=== PATIENT | female | born 1965 | race Caucasian/White ===

== ENCOUNTER 2017-03-26 15:18 | Inpatient (IN) | payer MEDICAID ==
[2017-03-26 16:43] LABS: ABSOLUTE EOSINOPHILS # (AUTO) 0.1 10^3/uL (0.0-0.6); ABSOLUTE MONOCYTES (AUTO) 0.5 10^3/uL (0.1-1.4); ABSOLUTE NEUT (AUTO) 9.9 10^3/uL (1.7-8.2); BASOPHILS % (AUTO) 0.2 % (0-2); EOSINOPHILS % (AUTO) 0.4 % (0-6); HEMOGLOBIN 13.7 g/dL (12.0-15.5); LYMPHOCYTES % (AUTO) 16.1 % (13-45); MEAN CORPUSCULAR HEMOGLOBIN 31.7 pg (27.0-33.4); MEAN CORPUSCULAR HGB CONC 34.2 g/dL (32.0-36.0); MEAN CORPUSCULAR VOLUME 93 fl (80-97); MONOCYTES % (AUTO) 4.3 % (3-13); PLATELET COUNT 355 10^3/uL (150-450); RED BLOOD COUNT 4.31 10^6/uL (3.72-5.28); RED CELL DISTRIBUTION WIDTH 13.9 % (11.5-14.0); TOTAL CELLS COUNTED % (AUTO) 100 %; WHITE BLOOD COUNT 12.6 10^3/uL (4.0-10.5)
[2017-03-26 17:12] LABS: ALANINE AMINOTRANSFERASE 21 U/L (9-52); ALBUMIN 3.7 g/dL (3.5-5.0); ALKALINE PHOSPHATASE 85 U/L (38-126); ANION GAP 7 (5-19); ASPARTATE AMINO TRANSFERASE 21 U/L (14-36); BILIRUBIN,DIRECT 0.2 mg/dL (0.0-0.4); BILIRUBIN,TOTAL 0.4 mg/dL (0.2-1.3); BLOOD UREA NITROGEN 8 mg/dL (7-20); CALCIUM 9.4 mg/dL (8.4-10.2); CARBON DIOXIDE 25 mmol/L (22-30); CHLORIDE 105 mmol/L (98-107); CREATINE KINASE 90 U/L (30-135); GLUCOSE 177 mg/dL (75-110); SODIUM 137.1 mmol/L (137-145); TOTAL PROTEIN 6.9 g/dL (6.3-8.2)
[2017-03-26 17:20] LABS: CREATINE KINASE MB 0.34 ng/mL (<4.55)
[2017-03-26 17:29] LABS: TROPONIN I < 0.012 ng/mL
--- NOTE | 2017-03-26 18:19 | EKG REPORT ---
SEVERITY:- ABNORMAL ECG - SINUS RHYTHM NONSPECIFIC T ABNORMALITIES, ANT-LAT LEADS : Confirmed by: Steven Villafuerte MD 26-Mar-2017 18:18:23
[2017-03-26] MEDS ORDERED: KETOROLAC TROMETHAMINE INJ/PF 30 MG/1 ML SDV IV ONE (20:02)
--- NOTE | 2017-03-26 20:14 | RADIOLOGY REPORT (SQ) ---
EXAM DESCRIPTION: CHEST SINGLE VIEW COMPLETED DATE/TIME: 03/26/2017 7:58 pm REASON FOR STUDY: chest pain COMPARISON: 10/25/2013 EXAM PARAMETERS: NUMBER OF VIEWS: One view. TECHNIQUE: Single frontal radiographic view of the chest acquired. RADIATION DOSE: NA LIMITATIONS: None. FINDINGS: LUNGS AND PLEURA: Opacities at the left base. Right lung is clear. MEDIASTINUM AND HILAR STRUCTURES: No masses. Contour normal. HEART AND VASCULAR STRUCTURES: Heart normal in size. Normal vasculature. BONES: No acute findings. HARDWARE: None in the chest. OTHER: No other significant finding. IMPRESSION: Left basilar pneumonitis. TECHNICAL DOCUMENTATION: JOB ID: [id number] [employer]- All Rights Reserved
--- NOTE | 2017-03-26 22:05 | ER Document Report ---
ED General - General Chief Complaint: Chest Pain Stated Complaint: CHEST PAIN Time Seen by Provider: 03/26/17 16:50 Mode of Arrival: Medic Information source: Patient TRAVEL OUTSIDE OF THE [place] IN LAST 30 DAYS: No - HPI Patient complains to provider of: chest pain for 2 weeks on and off Onset: Other - 2 weeks ago Onset/Duration: Intermittent Quality of pain: Dull Severity: Moderate Associated symptoms: Other - jaw pain Exacerbated by: Denies Relieved by: Denies Similar symptoms previously: Yes Recently seen / treated by doctor: No Notes: Patient states that she had chest pain last week that resolved on its wound and then returned today. No alleviating or aggravating factor. - Related Data Allergies/Adverse Reactions: No Known Allergies Allergy (Verified 01/19/13 08:35) Home Medications: Current Home Medications Fentanyl [Duragesic 100 Mcg/Hr Transdermal Patch] 100 mcg TOP Q3D 03/27/17 [ History] Quetiapine Fumarate [Seroquel 25 mg Tablet] 25 mg PO DAILY 03/27/17 [History] Sertraline HCl [Zoloft] 25 mg PO DAILY 03/27/17 [History] Tizanidine HCl [Zanaflex] 4 mg PO TID 03/27/17 [History] Past Medical History - General Information source: Patient - Social History Smoking Status: Current Every Day Smoker Frequency of alcohol use: Occasional Drug Abuse: None Lives with: Family Family History: Arthritis, Other - Patient's mother is alive and well at 72 years old Patient has suicidal ideation: No Patient has homicidal ideation: No - Past Medical History Cardiac Medical History: Denies: Hx Coronary Artery Disease, Hx Heart Attack, Hx Hypertension Pulmonary Medical History: Reports: Hx Bronchitis Denies: Hx Asthma, Hx COPD, Hx Pneumonia, Hx Tuberculosis Neurological Medical History: Denies: Hx Cerebrovascular Accident, Hx Seizures Endocrine Medical History: Reports: None Renal/ Medical History: Denies: Hx Peritoneal Dialysis Musculoskeltal Medical History: Reports Hx Arthritis - OA, Reports Hx Fibromyalgia, Reports Hx Musculoskeletal Deformity Psychiatric Medical History: Reports: Hx Bipolar Disorder, Hx Depression Past Surgical History: Reports: Hx Hysterectomy Other: OA, fibromyalgia, low bone density - Immunizations Hx Diphtheria, Pertussis, Tetanus Vaccination: Yes History of Influenza Vaccine for 12/2016 - 05/2017 Season: No Hx Pneumococcal Vaccination: 09/12/09 Review of Systems - Review of Systems Constitutional: No symptoms reported EENT: No symptoms reported Cardiovascular: See HPI Respiratory: Cough Gastrointestinal: No symptoms reported Genitourinary: No symptoms reported Female Genitourinary: No symptoms reported Musculoskeletal: No symptoms reported Skin: No symptoms reported Hematologic/Lymphatic: No symptoms reported Neurological/Psychological: No symptoms reported Physical Exam - Vital signs Vitals: Resp Pulse Ox 19 97 03/26/17 15:46 03/26/17 15:46 Interpretation: Normal, Other Notes: PHYSICAL EXAMINATION: GENERAL: 52-year-old female who appears older than stated age. Ill- appearing no acute distress. HEAD: Atraumatic, normocephalic. EYES: Pupils equal round and reactive to light, extraocular movements intact, conjunctiva are normal. ENT: Nares patent, oropharynx clear without exudates. Moist mucous membranes. NECK: Normal range of motion, supple without lymphadenopathy LUNGS: scant exp wheezes. No rales or rhonchi. HEART: Regular rate and rhythm without murmurs ABDOMEN: Soft, nontender, nondistended abdomen. No guarding, no rebound. No masses appreciated. Female : deferred Musculoskeletal: Normal range of motion, no pitting or edema. No cyanosis. NEUROLOGICAL: Cranial nerves grossly intact. Normal speech, normal gait. Normal sensory, motor exams PSYCH: Normal mood, normal affect. SKIN: Warm, Dry, normal turgor, no rashes or lesions noted. Course - Re-evaluation Re-evalutation: 03/26/17 22:15 pt. is now in afib and mildly hypotensive. CTA ordered to make sure patient doesn't have PE. 03/26/17 23:44 - Vital Signs Vital signs: Temp Pulse Resp BP Pulse Ox 97.3 F 52 L 14 112/51 L 100 03/27/17 20:00 03/27/17 20:30 03/27/17 20:30 03/27/17 20:00 03/27/17 20:00 - Laboratory Result Diagrams: 03/27/17 08:46 03/26/17 16:20 Laboratory results interpreted by me: 03/26/17 03/26/17 16:20 16:20 WBC 12.6 H Seg Neutrophils % 79.0 H Absolute Neutrophils 9.9 H Glucose 177 H - Diagnostic Test Radiology reviewed: Image reviewed, Reports reviewed Radiology results interpreted by me: 03/26/17 22:18 LL infiltrate 03/26/17 23:40 CTA No pe. B/l infiltrates - EKG Interpretation by Me EKG shows normal: Sinus rhythm Rate: Normal When compared to previous EKG there are: Changes noted Additional EKG results interpreted by me: 03/26/17 22:18 TWI lateral leads 03/26/17 22:19 EKG of /14 has TWI anterior leads Discharge - Discharge Clinical Impression: New onset a-fib, High blood sugar Hypotension Qualifiers: Hypotension type: unspecified hypotension type Qualified Code(s): I95.9 - Hypotension, unspecified Pneumonia Qualifiers: Pneumonia type: due to unspecified organism Laterality: bilateral Lung location : lower lobe of lung Qualified Code(s): J18.9 - Pneumonia, unspecified organism Disposition: ADMITTED INPATIENT Admitting Provider: Hospitalist - Dr. Lucero
[2017-03-26] MEDS ORDERED: NORMAL SALINE 1000 ML 1,000 ML IV PRN ×2 (23:03→23:58)
--- NOTE | 2017-03-26 23:16 | RADIOLOGY REPORT (SQ) ---
EXAM DESCRIPTION: CTA CHEST COMPLETED DATE/TIME: 03/26/2017 11:05 pm REASON FOR STUDY: sob/new onset afib/hypotension COMPARISON: Chest radiograph TECHNIQUE: CT scan of the chest performed using helical scanning technique with dynamic intravenous contrast injection. Images reviewed with lung, soft tissue and bone windows. Reconstructed coronal and sagittal MPR images reviewed. Additional 3 dimensional post-processing performed to develop Maximal Intensity Projection images (CT P). All images stored on PACS. All CT scanners at this facility use dose modulation, iterative reconstruction, and/or weight based d osing when appropriate to reduce radiation dose to as low as reasonably achievable (ALARA). [facility]: Dose Right [facility]: CareDose [facility]: Dose Right [facility]: Teradose 4D [facility]: Cernium CONTRAST TYPE AND DOSE: contrast/concentration: Isovue 370.00 mg/ml; Total Contrast Delivered: 65.0 ml; Total Saline Delivered: 105.0 ml Contrast bolus optimized for the pulmonary arteries. Not diagnostic for the aorta. RENAL FUNCTION: GFR > 60. RADIATION DOSE: CT Rad equipment meets quality standard of care and radiation dose reduction techniq ues were employed. CTDIvol: 13.2 - 14.3 mGy. DLP: 532 mGy-cm. . LIMITATIONS: None. FINDINGS: LUNGS AND PLEURA: Generalized mosaic appearance of the lungs. Minimal opacities at the ba ses. AORTA AND GREAT VESSELS: No aneurysm. Contrast bolus not optimized for the aorta. HEART: No pericardial effusion. No significant coronary artery calcifications. PULMONARY ARTERIES: No emboli visualized in the main pulmonary arteries or the segmental branches. HILAR AND MEDIASTINAL STRUCTURES: No identified masses or abnormal nodes. HARDWARE: None in the chest. UPPER ABDOMEN: No significant findings. Limited exam. THYROID AND OTHER SOFT TISSUES: No masses. No adenopathy. BONES: No acute or significant finding. 3D MIPS: Confirm above findings. OTHER: No other significant finding. IMPRESSION: No pulmonary emboli. Mosaic appearance of the lungs with minimal basilar opacities appear COMMENT: Quality ID # [id number]: Final reports with documentation of one or more dose reduction techniques (e.g., Automated exposure control, adjustment of the mA and/or kV according to patient size, use of iterative reconstruction technique) TECHNICAL DOCUMENTATION: JOB ID: [id number] [employer]- All Rights Reserved
[2017-03-26] MEDS ORDERED: CEFTRIAXONE 1 GM/D5W RTU 1 GM/50 ML RTUPB IV ONE (23:38)
[2017-03-26] MEDS ORDERED: AZITHROMYCIN INJ 500 MG VIAL IV ONE (23:38)
[2017-03-26] MEDS ORDERED: CEFTRIAXONE INJ 1000 MG VIAL ONE (23:46)
[2017-03-26] MEDS ORDERED: ACETAMINOPHEN 325 MG TABLET PO PRN (23:58)
[2017-03-26] MEDS ORDERED: GUAIFENESIN SYRP 200 MG/10 ML UDC PO PRN (23:58)
[2017-03-27] MEDS: LEVALBUTEROL HCL NEB 0.63 MG/3 ML AMPUL NEB SCH ×4 (00:43→20:31)
[2017-03-27 00:59] LABS: A TYPE INFLUENZA AG NEGATIVE (NEGATIVE); B INFLUENZA AG NEGATIVE (NEGATIVE)
[2017-03-27] MEDS ORDERED: NICOTINE 21 MG/24 HR PATCH.TD24 TD ONE (01:00)
[2017-03-27] MEDS ORDERED: METHYLPREDNISOLONE INJ 40 MG/1 ML SDV IV ONE (01:00)
[2017-03-27] MEDS ORDERED: FENTANYL 100 MCG/HR PATCH.TD72 TD ONE (01:00)
[2017-03-27] MEDS ORDERED: NORMAL SALINE 1000 ML 2,000 ML IV ONE ×2 (01:00→03:30)
[2017-03-27 01:36] LABS: APPEARANCE,URINE CLEAR; BILIRUBIN,URINE NEGATIVE (NEGATIVE); COLOR,URINE YELLOW; GLUCOSE, URINE NEGATIVE (NEGATIVE); KETONES,URINE NEGATIVE (NEGATIVE); LEUKOCYTE ESTERASE,URINE NEGATIVE (NEGATIVE); NITRITE,URINE NEGATIVE (NEGATIVE); PROTEIN,URINE NEGATIVE (NEGATIVE); UROBILINOGEN,URINE NEGATIVE mg/dL (<2.0)
[2017-03-27 01:41] LABS: URINE SPECIFIC GRAVITY > 1.060
[2017-03-27] MEDS ORDERED: ENOXAPARIN SODIUM INJ 60 MG/0.6 ML DISP.SYRIN SUBCUT SCH (03:00)
[2017-03-27] MEDS ORDERED: METOPROLOL TARTRATE PF/INJ 5 MG/5 ML SDV IV PRN (03:01)
--- NOTE | 2017-03-27 03:04 | PDOC H&P ---
History of Present Illness Admission Date/PCP: 03/27/17 00:24 ANGÉLICA HUGHES MD History of Present Illness: NANCI DOMINGO is a 52 year old female with past medical history of fibromyalgia, anxiety, bipolar disorder, COPD, osteoarthritis, chronic narcotic use who presents to the emergency department with complaints of chest pain. Patient reports that she has had a cough for several days productive of brownish yellow sputum. Patient reports that on and her family has been sick. She admits to shortness of breath, dyspnea on exertion, nausea without vomiting and heartburn. Patient reports that her chest discomfort has been going on and off for about 2 weeks. Patient has no alleviating or exacerbating factors. While in the emergency department, patient went into atrial fibrillation and became mildly hypotensive. CTA was obtained which was negative for pulmonary embolus but did reveal bilateral lower lobe pneumonia. She is for the hospitalist service for pneumonia, hypotension and new onset atrial fibrillation Past Medical History Cardiac Medical History: Denies: Coronary Artery Disease, Myocardial Infarction, Hypertension Pulmonary Medical History: Reports: Bronchitis, Chronic Obstructive Pulmonary Disease (COPD) Denies: Asthma, Pneumonia, Tuberculosis EENT Medical History: Reports: Cataracts Neurological Medical History: Denies: Seizures Endocrine Medical History: Reports: Hypothyroidism Musculoskeltal Medical History: Reports: Arthritis - OA, Fibromyalgia Psychiatric Medical History: Reports: Bipolar Disorder, Depression Hematology: Denies: Anemia Past Surgical History Past Surgical History: Reports: Hysterectomy, Orthopedic Surgery Social History Lives with: Family Smoking Status: Current Every Day Smoker Cigarettes Packs Per Day: 1 Frequency of Alcohol Use: None Hx Recreational Drug Use: No - Advance Directive Resuscitation Status: Full Code Surrogate healthcare decision maker:: Dylon Addison, Family History Family History: Arthritis, Other - Patient's mother is alive and well at 72 years old Parental Family History Reviewed: Yes Children Family History Reviewed: Yes Sibling(s) Family History Reviewed.: Yes Medication/Allergy Home Medications: Fentanyl [Duragesic 75 Mcg/Hr Transdermal Patch] 1 each TD Q3D 01/22/13 Gabapentin 800 mg PO TID 01/22/13 Quetiapine Fumarate [Seroquel 100 mg Tablet] 100 mg PO QHS 01/22/13 Pantoprazole Sodium 40 mg PO DAILY 10/08/13 Sennosides/Docusate 8.6-50 mg [Senna Plus Tablet] 1 each PO BID #60 tablet 10/09 Carisoprodol [Soma] 300 mg PO DAILY 10/30/13 Duloxetine HCl [Cymbalta] 60 mg PO DAILY 10/30/13 Oxycodone HCl 30 mg PO DAILY 10/30/13 Allergies/Adverse Reactions: No Known Allergies Allergy (Verified 01/19/13 08:35) Review of Systems Constitutional: PRESENT: chills, fever(s), weakness. ABSENT: headache(s), weight gain, weight loss Eyes: ABSENT: visual disturbances Ears: ABSENT: hearing changes Cardiovascular: PRESENT: chest pain. ABSENT: dyspnea on exertion, edema, orthropnea, palpitations Respiratory: PRESENT: cough, dyspnea, sputum. ABSENT: hemoptysis Gastrointestinal: PRESENT: constipation. ABSENT: abdominal pain, diarrhea, hematemesis, hematochezia, melena, nausea, vomiting Genitourinary: ABSENT: dysuria, hematuria Musculoskeletal: ABSENT: joint swelling Integumentary: ABSENT: rash, wounds Neurological: ABSENT: abnormal gait, abnormal speech, confusion, dizziness, focal weakness, syncope Psychiatric: ABSENT: anxiety, depression, homidical ideation, suicidal ideation Endocrine: ABSENT: cold intolerance, heat intolerance, polydipsia, polyuria Hematologic/Lymphatic: ABSENT: easy bleeding, easy bruising Physical Exam Vital Signs: Temp Pulse Resp BP Pulse Ox 98.2 F 22 H 94/68 L 93 03/26/17 23:37 03/27/17 02:01 03/27/17 02:00 03/27/17 02:01 General appearance: PRESENT: no acute distress, well-developed, well-nourished, other - Older than stated age appearing Head exam: PRESENT: atraumatic, normocephalic Eye exam: PRESENT: conjunctiva pink, EOMI, PERRLA. ABSENT: scleral icterus Ear exam: PRESENT: normal external ear exam Mouth exam: PRESENT: dry mucosa, tongue midline Neck exam: ABSENT: JVD, lymphadenopathy, thyromegaly, tracheal deviation Respiratory exam: PRESENT: rhonchi, symmetrical, unlabored. ABSENT: accessory muscle use, rales, tachypnea, wheezes Cardiovascular exam: PRESENT: irregular rhythm, +S1, +S2, systolic murmur. ABSENT: diastolic murmur, rubs Pulses: PRESENT: normal dorsalis pedis pul Vascular exam: PRESENT: normal capillary refill GI/Abdominal exam: PRESENT: hypoactive bowel sounds, soft. ABSENT: distended, firm, guarding, mass, Alba's sign, organolmegaly, rebound, rigid, tenderness Rectal exam: PRESENT: deferred Extremities exam: PRESENT: clubbing. ABSENT: calf tenderness, pedal edema Neurological exam: PRESENT: alert, awake, oriented to person, oriented to place , oriented to time, oriented to situation, CN II-XII grossly intact. ABSENT: motor sensory deficit Psychiatric exam: PRESENT: depressed, flat affect. ABSENT: homicidal ideation, suicidal ideation Skin exam: PRESENT: dry, intact, warm. ABSENT: cyanosis, rash Results Laboratory Results: 03/27/17 01:11 Urine Color YELLOW Urine Appearance CLEAR Urine pH 7.0 Ur Specific [place] > 1.060 Urine Protein NEGATIVE Urine Glucose (UA) NEGATIVE Urine Ketones NEGATIVE Urine Blood NEGATIVE Urine Nitrite NEGATIVE Ur Leukocyte Esterase NEGATIVE Urine WBC (Auto) 5 Urine RBC (Auto) 2 03/27/17 01:55 Troponin I < 0.012 03/26/17 03/26/17 03/26/17 16:20 16:20 16:20 WBC 12.6 H Hgb 13.7 Hct 40.0 Plt Count 355 Seg Neutrophils % 79.0 H Sodium 137.1 Potassium 4.0 Chloride 105 Carbon Dioxide 25 Anion Gap 7 BUN 8 Creatinine 0.83 Glucose 177 H Hemoglobin A1c % 5.4 Lactic Acid Calcium 9.4 Total Bilirubin 0.4 Direct Bilirubin 0.2 AST 21 ALT 21 Alkaline Phosphatase 85 Creatine Kinase 90 Total Protein 6.9 Albumin 3.7 03/26/17 22:35 WBC Hgb Hct Plt Count Seg Neutrophils % Sodium Potassium Chloride Carbon Dioxide Anion Gap BUN Creatinine Glucose Hemoglobin A1c % Lactic Acid 1.2 Calcium Total Bilirubin Direct Bilirubin AST ALT Alkaline Phosphatase Creatine Kinase Total Protein Albumin Impressions: Chest X-Ray 03/26/17 19:22 IMPRESSION: Left basilar pneumonitis. Chest/Abdomen CTA 03/26/17 22:15 IMPRESSION: No pulmonary emboli. Mosaic appearance of the lungs with minimal basilar opacities appear Assessment & Plan - Diagnosis (1) Pneumonia Qualifiers: Pneumonia type: due to unspecified organism Laterality: bilateral Lung location: lower lobe of lung Qualified Code(s): J18.9 - Pneumonia, unspecified organism Is this a current diagnosis for this admission?: Yes Plan: Treatment for community-acquired pneumonia with Rocephin and azithromycin Place patient on scheduled nebulized treatments and re-evaluate for improvement. PRN Xopenex Place patient on IV Solu-Medrol Obtain sputum culture Encourage smoking cessation (2) New onset a-fib Is this a current diagnosis for this admission?: Yes Plan: Place patient on telemetry. Currently patient has no rapid ventricular response. Plot out serial cardiac enzymes. Possibly due to underlying illness place patient on Lovenox and obtain an echo. Metoprolol as needed heart rate greater than 120. (3) Hypotension Is this a current diagnosis for this admission?: Yes Plan: Concerned that this is secondary to beginning sepsis or due to her atrial fibrillation. We will bolus patient appropriately at 20/kg and then run her fluids at 200 mL/h. (4) High blood sugar Is this a current diagnosis for this admission?: Yes Plan: Check hemoglobin A1c (5) Hypothyroidism (acquired) Is this a current diagnosis for this admission?: Yes Plan: Patient was previously diagnosed with hypothyroidism but is no longer on any sort of replacement we will check a TSH (6) Chronic pain associated with significant psychosocial dysfunction Is this a current diagnosis for this admission?: Yes (7) Fibromyalgia Is this a current diagnosis for this admission?: Yes Plan: We will continue patient's chronic opioids as able (8) Tobacco abuse Is this a current diagnosis for this admission?: Yes Plan: Nicotine patch as needed - Time Time Spent: 30 to 50 Minutes Medications reviewed and adjusted accordingly: Yes - Inpatient Certification Based on my medical assessment, after consideration of the patient's comorbidities, presenting symptoms, or acuity I expect that the services needed warrant INPATIENT care.: Yes I certify that my determination is in accordance with my understanding of Medicare's requirements for reasonable and necessary INPATIENT services [42 CFR 412.3e].: Yes Medical Necessity: Need For IV Fluids, Need For Continuous Telemetry Monitoring , Need for Nebulizer Therapy and Monitoring of Response, Need for IV Antibiotics Post Hospital Care: D/C Real Estate Office Supervisor Documentation
[2017-03-27] MEDS: NORMAL SALINE 1000 ML 1,000 ML IV PRN ×3 (03:08→14:52)
[2017-03-27] MEDS ORDERED: LANSOPRAZOLE 15 MG TAB.RAP.DR PO SCH (06:00)
[2017-03-27] MEDS: METHYLPREDNISOLONE INJ 40 MG/1 ML SDV IV SCH ×4 (06:28→23:37)
--- NOTE | 2017-03-27 09:02 | PDOC CONSULTATION ---
Consultation Consult Date: 03/27/17 Attending physician:: YOLI PAZ Consult reason:: Chest pain, questionable atrial fibrillation History of Present Illness Admission Date/PCP: 03/27/17 00:24 ANGÉLICA HUGHES MD Patient complains of: Chest pain History of Present Illness: NANCI DOMINGO is a 52 year old female with past medical history of fibromyalgia, anxiety, bipolar disorder, COPD, osteoarthritis, chronic narcotic use who presents to the emergency department with complaints of chest pain. Patient reports that she has had a cough for several days productive of brownish yellow sputum. Patient reports that on and her family has been sick. She admits to shortness of breath, dyspnea on exertion, nausea without vomiting and heartburn. Patient reports that her chest discomfort has been going on and off for about 2 weeks. Patient has no alleviating or exacerbating factors. While in the emergency department, patient went into atrial fibrillation and became mildly hypotensive. CTA was obtained which was negative for pulmonary embolus but did reveal bilateral lower lobe pneumonia. She is for the hospitalist service for pneumonia, hypotension and new onset atrial fibrillation. The above history was reviewed and confirmed. Patient examined in the ER. I reviewed patient's EKGs, it seems patient had transient atrial fibrillation. Currently patient is maintaining sinus rhythm. Currently vitals are stable. Patient does have some nonspecific T-wave changes. Past Medical History Cardiac Medical History: Denies: Coronary Artery Disease, Myocardial Infarction, Hypertension Pulmonary Medical History: Reports: Bronchitis, Chronic Obstructive Pulmonary Disease (COPD) Denies: Asthma, Pneumonia, Tuberculosis EENT Medical History: Reports: Cataracts Neurological Medical History: Denies: Seizures Endocrine Medical History: Reports: None, Hypothyroidism Musculoskeltal Medical History: Reports: Arthritis - OA, Fibromyalgia Psychiatric Medical History: Reports: Bipolar Disorder, Depression Hematology: Denies: Anemia Past Surgical History Past Surgical History: Reports: Hysterectomy, Orthopedic Surgery Social History Information Source: Patient Lives with: Family Smoking Status: Current Every Day Smoker Cigarettes Packs Per Day: 1 Number of Years Smokin Frequency of Alcohol Use: Rare Hx Recreational Drug Use: No Drugs: None - Advance Directive Resuscitation Status: Full Code Surrogate healthcare decision maker:: Patient's is the surrogate decision-maker Family History Family History: Arthritis, Other - Patient's mother is alive and well at 72 years old Parental Family History Reviewed: Yes Children Family History Reviewed: Yes Sibling(s) Family History Reviewed.: Yes - Negative for premature coronary artery disease or sudden cardiac in the family amongst first degree relatives. Medication/Allergy Home Medications: Fentanyl [Duragesic 75 Mcg/Hr Transdermal Patch] 1 each TD Q3D 01/22/13 Gabapentin 800 mg PO TID 01/22/13 Quetiapine Fumarate [Seroquel 100 mg Tablet] 100 mg PO QHS 01/22/13 Oxycodone HCl 20 mg PO QID 10/30/13 Quetiapine Fumarate [Seroquel 25 mg Tablet] 25 mg PO DAILY 03/27/17 Sertraline HCl [Zoloft] 25 mg PO DAILY 03/27/17 Tizanidine HCl [Zanaflex] 4 mg PO TID 03/27/17 Allergies/Adverse Reactions: No Known Allergies Allergy (Verified 01/19/13 08:35) Review of Systems Review of Systems: Please see history of present illness and past medical history as wall. Constitutional: No fever or chills reported. Head : No recent chronic headaches, recent head injury. Eyes: No recent eye pain, diplopia, redness, discharge, acute visual changes. Ears: No recent chronic ear pain, acute hearing loss, ear discharge. Oral cavity: No recent ulcerations, bleeding, oral cavity discomfort. Neck: No recent acute neck pain reported. Hematologic: No recent easy bruising or bleeding or hematologic malignancy reported. Lymphatic: No recent lymphatic malignancy, chronic lymphadenopathy reported yet Cardiovascular system review: See history of present illness. Respiratory system review: History of recent cough but denied hemoptysis, blood clots in the lungs reported. Mild Shortness of breath on exertion Gastrointestinal system review: Negative for any recent acute or chronic abdominal pain, hematemesis, melena, recent change in bowel habits. Genitourinary system review: No recent acute or chronic hematuria, flank pain, UTI etc. reported. Skin system review: Negative for any recent abnormal bruising, no rash, no pruritus reported. Neurologic: No prior history of strokes, mini strokes, seizure disorder. Psychologic: No history of major psychosis or major depression reported. Patient does have history of previous bipolar disorder. Musculoskeletal: Patient describes significant problems with arthritis and currently on quite a bit of pain medications.. No acute joint swelling reported. Endocrine: No recent polyuria, polydipsia, recent heat or cold intolerance. Physical Exam Vital Signs: Temp Pulse Resp BP Pulse Ox 97.5 F 10 L 98/70 L 99 03/27/17 07:00 03/27/17 08:30 03/27/17 08:30 03/27/17 08:30 Exam: GENERAL: well-nourished and in no acute distress. Alert and oriented x3 HEAD: Atraumatic, normocephalic. EYES: Pupils equal round and reactive to light, extraocular movements intact, sclera anicteric, conjunctiva are normal. ENT: TMs normal, nares patent, oropharynx clear without exudates. Moist mucous membranes. No oral ulcerations or bleeding gums noted NECK: supple without lymphadenopathy. Trachea is central. No cervical or axillary lymphadenopathy noted. Carotids are 2+, JVD WNL LUNGS: Respiration seems nonlabored, no significant accessory muscle action noted. Breath sounds clear to auscultation bilaterally and equal noted. No wheezes rales or rhonchi noted. No significant dullness noted on percussion. CHEST: Palpation of the chest wall shows some chest wall tenderness. No other significant abnormalities noted. HEART: [place] [employer], No PSH, 1/6 KORINA aortic area, 1/6 kendrick systolic murmur mitral area, no rubs, no gallops. ABDOMEN: Soft, no significant tenderness appreciated, normoactive bowel sounds. No guarding, no rebound. No rigidity noted . No masses appreciated. EXTREMITIES: Pedal pulses are 1-2+, no calf tenderness noted. No clubbing or cyanosis.trace to 1+ pedal edema noted NEUROLOGICAL: Focused neurological exam showed no significant neurologic deficit. Normal speech, no focal weakness appreciated. PSYCH: Normal mood, normal affect. Judgment and insight within normal limits. SKIN: No significant ecchymosis, rash, ulcerations or signs of pruritus noted. MUSCULOSKELETAL EXAM: No significant joint swelling noted. Results Laboratory Results: 03/27/17 03/27/17 01:11 01:55 TSH 2.93 Urine Color YELLOW Urine Appearance CLEAR Urine pH 7.0 Ur Specific Dickey > 1.060 Urine Protein NEGATIVE Urine Glucose (UA) NEGATIVE Urine Ketones NEGATIVE Urine Blood NEGATIVE Urine Nitrite NEGATIVE Ur Leukocyte Esterase NEGATIVE Urine WBC (Auto) 5 Urine RBC (Auto) 2 03/27/17 01:55 Troponin I < 0.012 EKG Comments: Multiple 12-lead EKGs available for review. EKG is suggestive of transient atrial fibrillation. However it seems patient was just briefly in atrial fibrillation. Rhythm strips are showing sinus rhythm. EKG initial one shows sinus rhythm.. Impressions: Chest X-Ray 03/26/17 19:22 IMPRESSION: Left basilar pneumonitis. Chest/Abdomen CTA 03/26/17 22:15 IMPRESSION: No pulmonary emboli. Mosaic appearance of the lungs with minimal basilar opacities appear Assessment & Plan - Diagnosis (1) Chest pain Qualifiers: Chest pain type: unspecified Qualified Code(s): R07.9 - Chest pain, unspecified Is this a current diagnosis for this admission?: Yes (2) Paroxysmal atrial fibrillation Is this a current diagnosis for this admission?: Yes (3) Hypotension Qualifiers: Hypotension type: unspecified hypotension type Qualified Code(s): I95.9 - Hypotension, unspecified Is this a current diagnosis for this admission?: Yes (4) Pneumonia Qualifiers: Pneumonia type: due to unspecified organism Laterality: bilateral Lung location: lower lobe of lung Qualified Code(s): J18.9 - Pneumonia, unspecified organism Is this a current diagnosis for this admission?: Yes (5) Tobacco abuse Is this a current diagnosis for this admission?: Yes (6) Chronic pain associated with significant psychosocial dysfunction Is this a current diagnosis for this admission?: Yes (7) Fibromyalgia Is this a current diagnosis for this admission?: Yes (8) Abnormal electrocardiogram Is this a current diagnosis for this admission?: Yes - Notes Notes: Chest pain: Initial EKGs are showing some nonspecific T-wave inversion. Patient also noted to have transient A. fib associated with hypotension. Initial enzymes are negative. Will obtain a 2D echo and schedule patient for a nuclear stress test. Paroxysmal atrial fibrillation: This was felt to be transient. Precipitating cause not clear but could be pneumonia, drug abuse, vagal stimulation etc. A 2D echocardiogram is being obtained to assess need for anticoagulation. Currently chads score is noted to be low. Hypotension: Possible volume depletion. Consider ruling out [place]'s disease, internal bleed etc. Agree with IV fluid therapy and volume expansion. Pneumonia: CT scan showed some basilar opacities probably related to atelectasis. Continue antibiotics. Chronic pain: Continue pain management. Fibromyalgia: Consider Cymbalta therapy. - Time Time Spent: 30 to 50 Minutes - CODE STATUS was discussed, patient remains full code. Surrogate decision-maker unchanged. Multiple medical problems were addressed. More than 50% of the time spent coordinating care, discussing management plans with involved caregivers. Management plans discussed with involved personnels. Medical decision making was of moderate to high complexity , patient's has multiple comorbidities. Medications reviewed and adjusted accordingly: Yes
[2017-03-27 09:10] LABS: ABSOLUTE MONOCYTES (AUTO) 0.1 10^3/uL (0.1-1.4); BASOPHILS % (AUTO) 0.2 % (0-2); LYMPHOCYTES % (AUTO) 22.2 % (13-45); MEAN CORPUSCULAR HEMOGLOBIN 32.3 pg (27.0-33.4); MEAN CORPUSCULAR HGB CONC 34.5 g/dL (32.0-36.0); MEAN CORPUSCULAR VOLUME 94 fl (80-97); MONOCYTES % (AUTO) 0.6 % (3-13); PLATELET COUNT 238 10^3/uL (150-450); RED BLOOD COUNT 3.73 10^6/uL (3.72-5.28); RED CELL DISTRIBUTION WIDTH 14.2 % (11.5-14.0); TOTAL CELLS COUNTED % (AUTO) 100 %; WHITE BLOOD COUNT 9.1 10^3/uL (4.0-10.5)
--- NOTE | 2017-03-27 09:33 | EKG REPORT ---
SEVERITY:- ABNORMAL ECG - ATRIAL FIBRILLATION NONSPECIFIC T ABNORMALITIES, ANT-LAT LEADS : Confirmed by: Steven Villafuerte MD 27-Mar-2017 09:33:11
[2017-03-27] MEDS ORDERED: ENOXAPARIN SODIUM INJ 40 MG/0.4 ML DISP.SYRIN SUBCUT SCH (10:00)
[2017-03-27] MEDS: GUAIFENESIN 600 MG TABLET.SA PO SCH ×2 (12:00→21:53)
[2017-03-27] MEDS: SENNOSIDES/DOCUSATE 8.6-50 MG 1 EACH TABLET PO SCH ×2 (12:01→17:45)
[2017-03-27] MEDS ORDERED: OXYCODONE HCL IR 5 MG TABLET PO PRN (12:23)
[2017-03-27] MEDS: HYDROMORPHONE HCL INJ/PF 2 MG/ML AMPULE IV PRN ×4 (13:00→21:52)
[2017-03-27] MEDS ORDERED: CALCIUM CARBONATE 500 MG TAB.CHEW PO ONE (14:45)
[2017-03-27] MEDS ORDERED: MAG HYDROX/AL HYDROX/SIMETH SUSP 30 ML UDCUP PO PRN (14:53)
[2017-03-27] MEDS: FENTANYL 100 MCG/HR PATCH.TD72 TOP SCH (17:28)
--- NOTE | 2017-03-27 17:43 | Progress Note ---
Provider Note Provider Note: Patient admitted today by Dr. Lucero for new onset A. fib with RVR. Cardiology consult and following patient. Patient currently in normal sinus rhythm. Could have been secondary to underlying pneumonia for which patient is being treated. Echo and stress tests are pending. Patient did later on complained of strict reflux. Patient being started on Protonix IV 40 twice daily. Patient given Tums with as needed Maalox.
[2017-03-27] MEDS: ENOXAPARIN SODIUM INJ 60 MG/0.6 ML DISP.SYRIN SUBCUT SCH (17:49)
--- NOTE | 2017-03-27 17:52 | XCELERA REPORT ---
[address] [address] Transthoracic Echocardiogram Report Name: NANCI DOMINGO Age: 52 yrs Gender: Female : 1965 Patient Status: Inpatient Patient Location: [address] Study Date: 03/27/2017 12:46 PM Height: 68 in Weight: 146 lb BSA: 1.8 m2 Procedure: A complete two-dimensional transthoracic echocardiogram was performed (2D, M-mode, spectral and color flow Doppler). The study was technically adequate with some images being suboptimal in quality. Reason For Study: a fib, hypotension Ordering Physician: JEIMY WRAY Performed By: Kassie Delcid Interpretation Summary The left ventricular ejection fraction is normal. There is normal left ventricular wall thickness. Doppler measurements suggest normal left ventricular diastolic function No regional wall motion abnormalities noted. The right ventricular systolic function is normal. The right atrium is normal in size The left atrial size is normal. There is a mild to moderate amount of mitral regurgitation There is no mitral valve stenosis. There is no aortic valve stenosis No aortic regurgitation is present. There is a mild amount of tricuspid regurgitation There is mild pulmonary hypertension by echo Right ventricular systolic pressure is estimated to be elevated at 30- 40mmHg. There is no pericardial effusion. MMode/2D Measurements & Calculations RVDd: 3.0 cm LVIDd: 4.6 cm FS: 40.7 % Ao root diam: 2.7 cm IVSd: 0.76 cm LVIDs: 2.8 cm EDV(Teich): 99.4 ml LVPWd: 0.77 cm ESV(Teich): 28.4 ml Ao root area: 5.8 cm2 EF(Teich): 71.5 % LA dimension: 3.1 cm Doppler Measurements & Calculations MV E max mason: MV P1/2t max mason: Ao V2 max: LV V1 max P.9 cm/sec 125.9 cm/sec 130.9 cm/sec 6.0 mmHg MV A max mason: MV P1/2t: 60.3 msec Ao max PG: LV V1 max: 75.0 cm/sec 6.9 mmHg 122.9 cm/sec MV E/A: 1.7 MVA(P1/2t): 3.6 cm2 MV dec slope: 611.5 cm/sec2 MV dec time: 0.20 sec PA V2 max: PI end-d mason: TR max mason: 105.6 cm/sec 99.1 cm/sec 278.3 cm/sec PA max PG: TR max P.5 mmHg 31.0 mmHg Left Ventricle The left ventricle is grossly normal size. There is normal left ventricular wall thickness. The left ventricular ejection fraction is normal. Doppler measurements suggest normal left ventricular diastolic function. No regional wall motion abnormalities noted. Right Ventricle The right ventricle is grossly normal size. There is normal right ventricular wall thickness. The right ventricular systolic function is normal. Atria The right atrium is normal in size. The left atrial size is normal. Interarterial septum not well visualized and not well dopplered. Cannot comment on ASD/PFO presence. Mitral Valve The mitral valve is grossly normal. There is no mitral valve stenosis. There is a mild to moderate amount of mitral regurgitation. Aortic Valve The aortic valve is grossly normal. There is no aortic valve stenosis. No aortic regurgitation is present. Tricuspid Valve The tricuspid valve is not well visualized, but is grossly normal. There is no tricuspid stenosis. There is a mild amount of tricuspid regurgitation. There is mild pulmonary hypertension by echo. Right ventricular systolic pressure is estimated to be elevated at 30-40mmHg. Pulmonic Valve The pulmonic valve is not well visualized. Great Vessels The aortic root is not well visualized but is probably normal size. The inferior vena cava was not well visualized. Effusions There is no pericardial effusion. : JEIMY WRAY > Jeimy Wray
[2017-03-27] MEDS ORDERED: (PENDING PHARMACY ID) (Gabapentin [Gabapentin] 800 MG) PO SCH (18:00)
[2017-03-27] MEDS: OXYCODONE HCL IR 5 MG TABLET PO SCH ×2 (18:26→23:37)
[2017-03-27] MEDS ORDERED: INFLUENZA ADLT QUAD (36MOS+) 2017-18 VAC 0.5 ML SYR IM PRN (20:35)
[2017-03-27] MEDS: QUETIAPINE FUMARATE 100 MG TABLET PO SCH (21:52)
[2017-03-27] MEDS: PANTOPRAZOLE SODIUM 40 MG VIAL IV SCH (21:52)
[2017-03-27] MEDS: AZITHROMYCIN 500 MG in DEXTROSE 5%-WATER 250 ML IV SCH (21:53)
[2017-03-27] MEDS: GABAPENTIN 400 MG CAPSULE PO SCH (21:53)
[2017-03-27] MEDS: CEFTRIAXONE SODIUM 1,000 MG in DEXTROSE 5%-WATER 50 ML IV SCH (21:53)
[2017-03-27] MEDS ORDERED: CEFTRIAXONE 1 GM/D5W RTU 1 GM/50 ML RTUPB IV SCH (23:00)
[2017-03-28] MEDS: LEVALBUTEROL HCL NEB 0.63 MG/3 ML AMPUL NEB SCH ×4 (02:03→19:44)
[2017-03-28] MEDS: HYDROMORPHONE HCL INJ/PF 2 MG/ML AMPULE IV PRN ×6 (02:55→23:48)
[2017-03-28] MEDS: NORMAL SALINE 1000 ML 1,000 ML IV PRN (04:02)
[2017-03-28 05:29] LABS: ABSOLUTE LYMPHOCYTES (AUTO) 2.1 10^3/uL (0.5-4.7); ABSOLUTE MONOCYTES (AUTO) 0.5 10^3/uL (0.1-1.4); ABSOLUTE NEUT (AUTO) 14.8 10^3/uL (1.7-8.2); BASOPHILS % (AUTO) 0.1 % (0-2); HEMATOCRIT 33.5 % (36.0-47.0); HEMOGLOBIN 11.2 g/dL (12.0-15.5); LYMPHOCYTES % (AUTO) 12.4 % (13-45); MEAN CORPUSCULAR HEMOGLOBIN 31.9 pg (27.0-33.4); MEAN CORPUSCULAR HGB CONC 33.4 g/dL (32.0-36.0); MEAN CORPUSCULAR VOLUME 96 fl (80-97); MONOCYTES % (AUTO) 2.6 % (3-13); PLATELET COUNT 276 10^3/uL (150-450); RED BLOOD COUNT 3.51 10^6/uL (3.72-5.28); RED CELL DISTRIBUTION WIDTH 14.6 % (11.5-14.0); SEGMENTED NEUTROPHILS % (AUTO) 84.9 % (42-78); TOTAL CELLS COUNTED % (AUTO) 100 %; WHITE BLOOD COUNT 17.4 10^3/uL (4.0-10.5)
[2017-03-28] MEDS: GABAPENTIN 400 MG CAPSULE PO SCH ×3 (06:00→22:26)
[2017-03-28] MEDS: METHYLPREDNISOLONE INJ 40 MG/1 ML SDV IV SCH ×4 (06:00→23:48)
[2017-03-28] MEDS: ENOXAPARIN SODIUM INJ 60 MG/0.6 ML DISP.SYRIN SUBCUT SCH (06:00)
[2017-03-28] MEDS: OXYCODONE HCL IR 5 MG TABLET PO SCH ×4 (06:01→23:48)
[2017-03-28 06:18] LABS: ANION GAP 13 (5-19); BLOOD UREA NITROGEN 7 mg/dL (7-20); CALCIUM 8.8 mg/dL (8.4-10.2); CARBON DIOXIDE 16 mmol/L (22-30); CHLORIDE 117 mmol/L (98-107); GLUCOSE 122 mg/dL (75-110); POTASSIUM 3.5 mmol/L (3.6-5.0); SODIUM 146.3 mmol/L (137-145)
[2017-03-28] MEDS ORDERED: POTASSIUM CHLORIDE 10 MEQ TABLET.SA PO ONE (09:30)
[2017-03-28] MEDS ORDERED: (PENDING PHARMACY ID) (Sertraline Hcl [Zoloft] 25 MG) PO SCH (10:00)
[2017-03-28] MEDS: NICOTINE 21 MG/24 HR PATCH.TD24 TD SCH (12:10)
[2017-03-28] MEDS: QUETIAPINE FUMARATE 25 MG TABLET PO SCH (12:11)
[2017-03-28] MEDS: SENNOSIDES/DOCUSATE 8.6-50 MG 1 EACH TABLET PO SCH ×2 (12:11→17:43)
[2017-03-28] MEDS: SERTRALINE HCL 50 MG TABLET PO SCH (12:12)
[2017-03-28] MEDS: GUAIFENESIN 600 MG TABLET.SA PO SCH ×2 (12:12→22:26)
[2017-03-28] MEDS: PANTOPRAZOLE SODIUM 40 MG VIAL IV SCH ×2 (12:13→22:26)
--- NOTE | 2017-03-28 13:04 | DRAGON STRESS TEST REPORT ---
INTRAVENOUS LEXISCAN CARDIOLITE STRESS TEST USING SINGLE PHOTON EMMISION COMPUTERIZED TOMOGRAPHIC. DATE OF PROCEDURE: March 28, 2017 INDICATION : Atrial fibrillation, hypotension, risk factors CARDIAC RISK FACTORS: Hypertension, tobacco abuse RESTING EKG: Sinus rhythm without any baseline ST-T wave changes STRESS EKG: No significant changes noted with LexiScan bolus REASON FOR TERMINATION: Protocol. PROCEDURE REPORT: Baseline heart rate 62 beats per minute with blood pressure of 139/90. Patient had no significant complaints. Heart rate at 2 minutes post bolus 91 with a blood pressure of 105/62. 3 minutes post bolus heart rate 88 with blood pressure of 108/64. No significant EKG changes were noted. Patient had no significant complaints during the procedure or postprocedure. Patient injected with Aminophyllin 75 mg at 3 minutes or later after Lexiscan bolus. CONCLUSIONS: Normal EKG and hemodynamic response to IV LexiScan. NUCLEAR DATA: At rest the patient was given 10.81 millicuries of technetium 99 sestamibi injected intravenously. As per protocol rest gated SPECT images were obtained. Subsequently the patient was given intravenous LexiScan at a dose of 0.4 mg in 5 mL intravenously, followed by flush with normal saline. Subsequently the stress dose of 30.0 millicuries of technetium 99 sestamibi was injected intravenously. As per protocol stress gated images were obtained. NUCLEAR INTERPRETATION: Both raw and processed data were used for interpretation. Visual, qualitative, computer-generated quantitative data was used. There was good myocardial uptake of technetium compound. Motion artifact and soft tissue attenuations were noted. Increased visceral uptake was noted. No definitive areas of transient perfusion defect noted. No definitive areas of fixed perfusion defect or scars noted. EKG gated imaging showed LV EF at 73%, rest and stress gated EF similar visually. T. I D. ratio was 1.08. Lung heart ratio noted to be within normal limits 0.36. No significant extracardiac and abnormal radiotracer activities were noted. RV free wall uptake was noted to be WNL. IMPRESSION: Also refer to comments under nuclear interpretation. Also test results needs to be interpreted in the context of pretest probability. 1. There is no definitive scintigraphic evidence of LexiScan induced myocardial ischemia. 2. There is no definitive scintigraphic evidence of myocardial infarction/scar. 3. EKG gated imaging shows left ventricular ejection fraction of approximately 73%. 4. Clinical correlation requested as occasionally single vessel disease or balanced ischemia could be missed. In approximately 10% of the cases Lexiscan may not cause adequate vasodilatory stress. RECOMMENDATIONS: Aggressive risk factor modification, medical therapy. Clinical correlation with echocardiogram derived ejection fraction. Inability to exercise by itself can lead to increased cardiovascular event risks. Consider cardiology consultation and or follow-up if clinically indicated. I AM AVAILABLE FOR CARDIOLOGY CONSULTATION AND FOLLOWUP IF REQUESTED BY PMD Jeimy Lazar M.D., GERRI Hammerer Hel[employer] psychological science professor, Board certified in cardiovascular diseases, Nuclear cardiology, Echocardiography Cardiac CT and cardiac MRI Ph. [phone] [facility]
[2017-03-28] MEDS ORDERED: AMINOPHYLLINE INJ/PF 250 MG/10 ML SDV IV ONE (13:29)
[2017-03-28] MEDS ORDERED: REGADENOSON INJ 0.4 MG/5 ML DISP.SYRIN IV ONE (13:29)
--- NOTE | 2017-03-28 15:51 | PDOC PROGRESS REPORT ---
Subjective Progress Note for:: 03/28/17 Subjective:: Patient seems to be doing better with significant improvement. Pt is denying any chest arm or neck discomfort. Patient denying any PND, orthopnea. Patient denied any sustained palpitations, dizziness, syncope, near syncope. Patient denying any fever chills. Patient denying any other significant discomfort. Patient is maintaining sinus rhythm. Review of systems: Rest review of systems negative. Medications: Medications have been reviewed. Reason For Visit: NEW ONSET A-FIB Physical Exam Vital Signs: Temp Pulse Resp BP Pulse Ox 97.6 F 67 16 130/69 H 96 03/28/17 12:06 03/28/17 14:00 03/28/17 13:56 03/28/17 12:06 03/28/17 13:56 Intake & Output 03/27/17 03/28/17 03/29/17 06:59 06:59 06:59 Intake Total 1460 Output Total 500 Balance 960 Weight 70.7 kg Exam: GENERAL: well-nourished and in no acute distress. Alert and oriented x3 HEAD: Atraumatic, normocephalic. EYES: Pupils equal round and reactive to light, extraocular movements intact, sclera anicteric, conjunctiva are normal. ENT: TMs normal, nares patent, oropharynx clear without exudates. Moist mucous membranes. No oral ulcerations or bleeding gums noted NECK: supple without lymphadenopathy. Trachea is central. No cervical or axillary lymphadenopathy noted. Carotids are 2+, JVD WNL LUNGS: Respiration seems nonlabored, no significant accessory muscle action noted. Breath sounds clear to auscultation bilaterally and equal noted. No wheezes rales or rhonchi noted. No significant dullness noted on percussion. CHEST: Palpation of the chest wall shows no significant chest wall tenderness. No other significant abnormalities noted. 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 ABDOMEN: Soft, no significant tenderness appreciated, normoactive bowel sounds. No guarding, no rebound. No rigidity noted . No masses appreciated. EXTREMITIES: Pedal pulses are 1-2+, no calf tenderness noted. No clubbing or cyanosis. Negative pedal edema noted NEUROLOGICAL: Focused neurological exam showed no significant neurologic deficit. Normal speech, no focal weakness appreciated. PSYCH: Normal mood, normal affect. Judgment and insight within normal limits. SKIN: No significant ecchymosis, rash, ulcerations or signs of pruritus noted. MUSCULOSKELETAL EXAM: No significant joint swelling noted. Results Laboratory Results: 03/28/17 04:02 03/28/17 04:02 03/28/17 03/28/17 04:02 04:02 WBC 17.4 H RBC 3.51 L Hgb 11.2 L Hct 33.5 L MCV 96 MCH 31.9 MCHC 33.4 RDW 14.6 H Plt Count 276 Seg Neutrophils % 84.9 H Lymphocytes % 12.4 L Monocytes % 2.6 L Eosinophils % 0.0 Basophils % 0.1 Absolute Neutrophils 14.8 H Absolute Lymphocytes 2.1 Absolute Monocytes 0.5 Absolute Eosinophils 0.0 Absolute Basophils 0.0 Sodium 146.3 H Potassium 3.5 L Chloride 117 H Carbon Dioxide 16 L Anion Gap 13 BUN 7 Creatinine 0.65 Est GFR ( Amer) > 60 Est GFR (Non-Af Amer) > 60 Glucose 122 H Calcium 8.8 03/27/17 03/27/17 03/27/17 01:55 08:46 15:30 Troponin I < 0.012 < 0.012 < 0.012 Impressions: Chest X-Ray 03/26/17 19:22 IMPRESSION: Left basilar pneumonitis. Chest/Abdomen CTA 03/26/17 22:15 IMPRESSION: No pulmonary emboli. Mosaic appearance of the lungs with minimal basilar opacities appear Assessment & Plan - Diagnosis (1) Chest pain Qualifiers: Chest pain type: unspecified Qualified Code(s): R07.9 - Chest pain, unspecified Is this a current diagnosis for this admission?: Yes (2) Paroxysmal atrial fibrillation Is this a current diagnosis for this admission?: Yes (3) Hypotension Qualifiers: Hypotension type: unspecified hypotension type Qualified Code(s): I95.9 - Hypotension, unspecified Is this a current diagnosis for this admission?: Yes (4) Pneumonia Qualifiers: Pneumonia type: due to unspecified organism Laterality: bilateral Lung location: lower lobe of lung Qualified Code(s): J18.9 - Pneumonia, unspecified organism Is this a current diagnosis for this admission?: Yes (5) Tobacco abuse Is this a current diagnosis for this admission?: Yes (6) Chronic pain associated with significant psychosocial dysfunction Is this a current diagnosis for this admission?: Yes (7) Fibromyalgia Is this a current diagnosis for this admission?: Yes (8) Abnormal electrocardiogram Is this a current diagnosis for this admission?: Yes - Notes Notes: Chest pain: Patient claims chest pain is resolved. This was evaluated with a nuclear stress test. Nuclear stress test was negative for any significant areas of ischemia or any significant areas of scar. The nuclear stress test is felt to be relatively low risk. Patient informed that occasionally single- vessel disease and balanced ischemia could be missed. Patient advised aggressive risk factor modification and medical therapy. Patient informed that further evaluation may become necessary if symptoms worsens or there is a development of new symptoms indicative of angina or angina equivalent symptom. Paroxysmal atrial fibrillation: This was noted to be very transient. Exact etiology not clear but patient has low chads score. Do not feel chronic anticoagulation is indicated at this time but will recommend close cardiology follow-up. Patient can follow-up with me for this reason. Hypotension: 2D echo results reviewed. It showed normal LVEF. Cardiac enzymes are noted to be negative. Hypotension could be related to drug overdose, dehydration etc. Currently is stable. Tobacco abuse: Patient advised to quit smoking. Chronic pain syndrome: Currently stable. Abnormal electrocardiogram: Evaluated by 2D echo and nuclear stress test and no significant abnormalities were noted. - Time Time with patient: Greater than 35 minutes - CODE STATUS was discussed, patient remains full code. Multiple medical problems were addressed. More than 50% of the time spent coordinating care, discussing management plans with involved caregivers. Management plans discussed with involved personnels. Medical decision making was of moderate to high complexity, patient's has multiple comorbidities. Medications reviewed and adjusted accordingly: Yes
--- NOTE | 2017-03-28 16:14 | PDOC PROGRESS REPORT ---
Subjective Progress Note for:: 03/28/17 Subjective:: The patient is a 52-year-old female who has underlying fibromyalgia, anxiety, bipolar disorder, COPD, osteoarthritis, chronic narcotic use who presented to the emergency department yesterday with chest pain. She was admitted for pneumonia. She briefly had a history of atrial fibrillation. She was evaluated by cardiology with a stress test and echocardiogram. These tests are fairly unremarkable. Dr. Lazar does not feel that chronic anticoagulation is needed because she has a low chads score. She continues on IV antibiotics at this time for pneumonia. Reason For Visit: NEW ONSET A-FIB Physical Exam Vital Signs: Temp Pulse Resp BP Pulse Ox 97.6 F 67 16 130/69 H 96 03/28/17 12:06 03/28/17 14:00 03/28/17 13:56 03/28/17 12:06 03/28/17 13:56 Intake & Output 03/27/17 03/28/17 03/29/17 06:59 06:59 06:59 Intake Total 1460 Output Total 500 Balance 960 Weight 70.7 kg Additional comments: The patient does not appear to be in good general health. She appears older than her stated age. However, she does not appear to be in any distress and she does not appear to be toxic. Her only complaint this morning is heartburn. She also continues to complain of anterior chest pain and she feels weak all over. Her facial appearance is unremarkable. Her lungs are clear both anteriorly and posteriorly. She does not have any adventitious sounds such as rales, rhonchi or wheezing. Her cardiac exam is regular. She does not have any murmurs, gallops or rubs. The abdomen is soft and flat. Bowel sounds are present in all 4 quadrants. Her lower extremities are unremarkable. No pitting edema is present. The skin is clean, warm, dry and intact without lesions or rashes. Results Laboratory Results: 03/28/17 04:02 03/28/17 04:02 03/28/17 03/28/17 04:02 04:02 WBC 17.4 H RBC 3.51 L Hgb 11.2 L Hct 33.5 L MCV 96 MCH 31.9 MCHC 33.4 RDW 14.6 H Plt Count 276 Seg Neutrophils % 84.9 H Lymphocytes % 12.4 L Monocytes % 2.6 L Eosinophils % 0.0 Basophils % 0.1 Absolute Neutrophils 14.8 H Absolute Lymphocytes 2.1 Absolute Monocytes 0.5 Absolute Eosinophils 0.0 Absolute Basophils 0.0 Sodium 146.3 H Potassium 3.5 L Chloride 117 H Carbon Dioxide 16 L Anion Gap 13 BUN 7 Creatinine 0.65 Est GFR ( Amer) > 60 Est GFR (Non-Af Amer) > 60 Glucose 122 H Calcium 8.8 03/27/17 03/27/17 03/27/17 01:55 08:46 15:30 Troponin I < 0.012 < 0.012 < 0.012 Impressions: Chest X-Ray 03/26/17 19:22 IMPRESSION: Left basilar pneumonitis. Chest/Abdomen CTA 03/26/17 22:15 IMPRESSION: No pulmonary emboli. Mosaic appearance of the lungs with minimal basilar opacities appear Assessment & Plan - Diagnosis (1) Chest pain Qualifiers: Chest pain type: unspecified Qualified Code(s): R07.9 - Chest pain, unspecified Is this a current diagnosis for this admission?: Yes Plan: Based on her current evaluation this does not appear to be associated with underlying cardiac disease, however, Dr. Lazar does want to see the patient after discharge. The etiology of the chest pain certainly could be her pneumonia and other aggravating factors such as her fibromyalgia. (2) High blood sugar Is this a current diagnosis for this admission?: Yes Plan: This was an isolated value. Repeat is 122. Hemoglobin A1c is normal. (3) Hypotension Qualifiers: Hypotension type: unspecified hypotension type Qualified Code(s): I95.9 - Hypotension, unspecified Is this a current diagnosis for this admission?: Yes Plan: Resolved with fluids. (4) New onset a-fib Is this a current diagnosis for this admission?: Yes Plan: Possibly associated with underlying stress due to pneumonia, hypotension. Patient does not appear to need chronic anticoagulation. (5) Pneumonia Qualifiers: Pneumonia type: due to unspecified organism Laterality: bilateral Lung location: lower lobe of lung Qualified Code(s): J18.9 - Pneumonia, unspecified organism Is this a current diagnosis for this admission?: Yes (6) Tobacco abuse Is this a current diagnosis for this admission?: Yes Plan: Continue nicotine patch. (7) Hypothyroidism (acquired) Is this a current diagnosis for this admission?: Yes Plan: Patient was previously on medications for thyroid dysfunction but is no longer on medications. TSH is normal. (8) Chronic pain associated with significant psychosocial dysfunction Is this a current diagnosis for this admission?: Yes Plan: Patient is opioid dependent. (9) Fibromyalgia Is this a current diagnosis for this admission?: Yes Plan: Continue outpatient regimen for fibromyalgia. (10) Heartburn Is this a current diagnosis for this admission?: Yes Plan: Continue PPI (11) Metabolic acidosis Is this a current diagnosis for this admission?: Yes Plan: This was likely secondary to aggressive IV fluid hydration which was required on admission. Will repeat labs in the morning. IV fluids have been discontinued. (12) Hypokalemia Is this a current diagnosis for this admission?: Yes Plan: Repleted today - Time Time Spent with patient: 25-34 minutes - Inpatient Certification Medical Necessity: Need for Pain Control, Need for IV Antibiotics - Plan Summary Plan Summary: At this time the patient is requiring IV antibiotics and steroids. She appears to be clinically stable and improving. I do plan on changing her over to oral medications tomorrow and potentially discharging her tomorrow.
[2017-03-28] MEDS ORDERED: NICOTINE 21 MG/24 HR PATCH.TD24 TD ONE (18:30)
[2017-03-28] MEDS: QUETIAPINE FUMARATE 100 MG TABLET PO SCH (22:26)
[2017-03-28] MEDS: AZITHROMYCIN 500 MG in DEXTROSE 5%-WATER 250 ML IV SCH (22:26)
[2017-03-28] MEDS: CEFTRIAXONE SODIUM 1,000 MG in DEXTROSE 5%-WATER 50 ML IV SCH (22:26)
[2017-03-29] MEDS: LEVALBUTEROL HCL NEB 0.63 MG/3 ML AMPUL NEB SCH ×4 (02:20→20:07)
[2017-03-29] MEDS: GABAPENTIN 400 MG CAPSULE PO SCH ×3 (06:15→21:55)
[2017-03-29] MEDS: OXYCODONE HCL IR 5 MG TABLET PO SCH ×3 (06:15→18:05)
[2017-03-29] MEDS: METHYLPREDNISOLONE INJ 40 MG/1 ML SDV IV SCH (06:15)
[2017-03-29] MEDS: HYDROMORPHONE HCL INJ/PF 2 MG/ML AMPULE IV PRN ×3 (06:44→21:54)
[2017-03-29 07:23] LABS: ANION GAP 13 (5-19); BLOOD UREA NITROGEN 9 mg/dL (7-20); CALCIUM 9.1 mg/dL (8.4-10.2); CARBON DIOXIDE 19 mmol/L (22-30); CHLORIDE 113 mmol/L (98-107); GLUCOSE 137 mg/dL (75-110); MAGNESIUM 2.1 mg/dL (1.6-2.3); POTASSIUM 3.3 mmol/L (3.6-5.0); SODIUM 145.2 mmol/L (137-145)
[2017-03-29] MEDS: PANTOPRAZOLE SODIUM 40 MG VIAL IV SCH ×2 (10:50→21:54)
[2017-03-29] MEDS: SERTRALINE HCL 50 MG TABLET PO SCH (10:50)
[2017-03-29] MEDS: GUAIFENESIN 600 MG TABLET.SA PO SCH ×2 (10:50→21:54)
[2017-03-29] MEDS: SENNOSIDES/DOCUSATE 8.6-50 MG 1 EACH TABLET PO SCH ×2 (10:50→18:06)
[2017-03-29] MEDS: NICOTINE 21 MG/24 HR PATCH.TD24 TD SCH (10:50)
[2017-03-29] MEDS: QUETIAPINE FUMARATE 25 MG TABLET PO SCH (10:50)
--- NOTE | 2017-03-29 12:43 | PDOC PROGRESS REPORT ---
Subjective Progress Note for:: 03/29/17 Subjective:: The patient is a 52-year-old female who has underlying fibromyalgia, anxiety, bipolar disorder, COPD, osteoarthritis, chronic narcotic use who presented to the emergency department yesterday with chest pain. She was admitted for pneumonia. She briefly had a history of atrial fibrillation. She was evaluated by cardiology with a stress test and echocardiogram. These tests are fairly unremarkable. Dr. Lazar does not feel that chronic anticoagulation is needed because she has a low chads score. She continues on IV antibiotics at this time for pneumonia. She also continues on IV corticosteroids for asthma/ COPD with exacerbation. This morning, I was notified by the microbiology laboratory that 1 out of 2 blood culture bottles is growing Streptococcus anginosus. Patient states that she is feeling better. Her cough is significantly improved. Her chest pain has lessened substantially. She is also breathing better. She notes no new acute skin lesions or rashes. Reason For Visit: NEW ONSET A-FIB Physical Exam Vital Signs: Temp Pulse Resp BP Pulse Ox 98.2 F 71 16 145/72 H 98 03/29/17 11:02 03/29/17 11:02 03/29/17 11:02 03/29/17 11:02 03/29/17 11:02 Intake & Output 03/28/17 03/29/17 03/30/17 06:59 06:59 06:59 Intake Total 1460 2321 355 Output Total 500 400 Balance 960 1921 355 Weight 70.7 kg 72.9 kg Additional comments: The patient appeared to be much improved today. She was resting comfortably in bed. Her cognition and mentation are normal. Her facial appearance is unremarkable. Today, her lungs are clear to auscultation both anteriorly and posteriorly. Her cardiac exam is regular without murmurs, gallops or rubs. The abdomen is soft and flat. Bowel sounds are present in all 4 quadrants. There is no guarding or rebound present and there are no hernias or masses present. The lower extremities are warm to touch without edema. The skin is warm dry and intact without lesions or rashes. The patient is noted to have very little muscle tone. When I asked her about this she told me that she is essentially not very active due to severe back pain. Results Laboratory Results: 03/28/17 04:02 03/29/17 06:00 03/29/17 06:00 Sodium 145.2 H Potassium 3.3 L Chloride 113 H Carbon Dioxide 19 L Anion Gap 13 BUN 9 Creatinine 0.58 Est GFR ( Amer) > 60 Est GFR (Non-Af Amer) > 60 Glucose 137 H Calcium 9.1 Magnesium 2.1 03/27/17 01:11 Clean Catch Midstream Urine Culture - Final Urogenital Mindi 03/27/17 03/27/17 03/27/17 01:55 08:46 15:30 Troponin I < 0.012 < 0.012 < 0.012 Impressions: Chest X-Ray 03/26/17 19:22 IMPRESSION: Left basilar pneumonitis. Chest/Abdomen CTA 03/26/17 22:15 IMPRESSION: No pulmonary emboli. Mosaic appearance of the lungs with minimal basilar opacities appear Assessment & Plan - Diagnosis (1) Chest pain Qualifiers: Chest pain type: unspecified Qualified Code(s): R07.9 - Chest pain, unspecified Is this a current diagnosis for this admission?: Yes Plan: Based on her current evaluation this does not appear to be associated with underlying cardiac disease, however, Dr. Lazar does want to see the patient after discharge. The etiology of the chest pain certainly could be her pneumonia/bronchospasm and other aggravating factors such as her fibromyalgia. (2) High blood sugar Is this a current diagnosis for this admission?: Yes Plan: This was an isolated value. Repeat is 122. Hemoglobin A1c is normal. (3) Hypotension Qualifiers: Hypotension type: unspecified hypotension type Qualified Code(s): I95.9 - Hypotension, unspecified Is this a current diagnosis for this admission?: Yes Plan: Resolved with fluids. (4) New onset a-fib Is this a current diagnosis for this admission?: Yes Plan: Possibly associated with underlying stress due to pneumonia, hypotension. Patient does not appear to need chronic anticoagulation. (5) Pneumonia Qualifiers: Pneumonia type: due to unspecified organism Laterality: bilateral Lung location: lower lobe of lung Qualified Code(s): J18.9 - Pneumonia, unspecified organism Is this a current diagnosis for this admission?: Yes Plan: Patient is receiving azithromycin and ceftriaxone. (6) Tobacco abuse Is this a current diagnosis for this admission?: Yes Plan: Continue nicotine patch. (7) Hypothyroidism (acquired) Is this a current diagnosis for this admission?: Yes Plan: Patient was previously on medications for thyroid dysfunction but is no longer on medications. TSH is normal. (8) Chronic pain associated with significant psychosocial dysfunction Is this a current diagnosis for this admission?: Yes Plan: Patient is opioid dependent. (9) Fibromyalgia Is this a current diagnosis for this admission?: Yes Plan: Continue outpatient regimen for fibromyalgia. (10) Heartburn Is this a current diagnosis for this admission?: Yes Plan: Continue PPI (11) Metabolic acidosis Is this a current diagnosis for this admission?: Yes Plan: This was likely secondary to aggressive IV fluid hydration which was required on admission. Improved on labs today. (12) Hypokalemia Is this a current diagnosis for this admission?: Yes Plan: Repleted again today. (13) Bacteremia Is this a current diagnosis for this admission?: Yes Plan: The patient is receiving appropriate antibiotic therapy with ceftriaxone. Clinically, I do not see any evidence of abscess formation or disease in the oral cavity oropharynx. She does not appear to have [employer] disease, however, her back disease could be concerning. To my knowledge she has not had any recent invasive procedures. I will continue ceftriaxone. I am going to order imaging studies of the head and neck. She has already received imaging of the chest/ abdomen and had an echocardiogram. - Time Time Spent with patient: 25-34 minutes - Inpatient Certification Medical Necessity: Need Close Monitoring Due to Risk of Patient Decompensation, Need for IV Antibiotics, Risk of Complication if Not Cared For in Hospital, Risk of Diagnosis Which Will Require Inpatient Eval/Care/Monitoring
[2017-03-29] MEDS ORDERED: POTASSIUM CHLORIDE 10 MEQ TABLET.SA PO ONE (14:00)
--- NOTE | 2017-03-29 17:35 | RADIOLOGY REPORT (SQ) ---
EXAM DESCRIPTION: CT HEAD COMBO COMPLETED DATE/TIME: 03/29/2017 5:25 pm REASON FOR STUDY: Strep anginosus COMPARISON: None. TECHNIQUE: Axial images acquired through the brain without and with intravenous contrast. Images re viewed with bone, brain and subdural windows. Images stored on PACS. All CT scanners at this facility use dose modulation, iterative reconstruction, and/or weight based d osing when appropriate to reduce radiation dose to as low as reasonably achievable (ALARA). [facility]: Dose Right [facility]: CareDose [facility]: Dose Right [facility]: Teradose 4D [facility]: Culture Kitchen CONTRAST TYPE AND DOSE: 75 mL Isovue 370- low osmolar. RENAL FUNCTION: GFR > 60. RADIATION DOSE: CT Rad equipment meets quality standard of care and radiation dose reduction techniq ues were employed. CTDIvol: 64.6 mGy. DLP: 1163 mGy-cm.. LIMITATIONS: None. FINDINGS: VENTRICLES: Normal size and contour. CEREBRUM: No masses. No hemorrhage. No midline shift. Normal agee/white matter differentiation. No ev idence for acute infarction. No enhancing lesions. CEREBELLUM: No masses. No hemorrhage. No alteration of density. No evidence for acute infarction. No enhancing lesions. EXTRA-AXIAL SPACES: No fluid collections. No enhancing lesions. ORBITS AND GLOBE: No intra- or extraconal masses. Normal contour of globe without masses. CALVARIUM: No fracture. PARANASAL SINUSES: No fluid or mucosal thickening. SOFT TISSUES: No mass or hematoma. OTHER: No other significant finding. IMPRESSION: NORMAL BRAIN CT WITHOUT AND WITH CONTRAST. EVIDENCE OF ACUTE STROKE: NO. TECHNICAL DOCUMENTATION: JOB ID: [id number] Quality ID # [id number]: Final reports with documentation of one or more dose reduction techniques (e.g., Au tomated exposure control, adjustment of the mA and/or kV according to patient size, use of iterative reconstruction technique) 2010 [employer]- All Rights Reserved
--- NOTE | 2017-03-29 17:38 | RADIOLOGY REPORT (SQ) ---
EXAM DESCRIPTION: CT SOFT TISSUE NECK WITH COMPLETED DATE/TIME: 03/29/2017 5:25 pm REASON FOR STUDY: Strep anginosus COMPARISON: None. TECHNIQUE: Post IV contrasted scanning from skull base through lung apices with review of bone, soft tissue and lung windows. Reconstructed coronal and sagittal MPR images reviewed. All images stored on PACS. All CT scanners at this facility use dose modulation, iterative reconstruction, and/or weight based d osing when appropriate to reduce radiation dose to as low as reasonably achievable (ALARA). [facility]: Dose Right [facility]: CareDose [facility]: Dose Right [facility]: Teradose 4D [facility]: CITIA CONTRAST TYPE AND DOSE: contrast/concentration: Isovue 370.00 mg/ml; Total Contrast Delivered: 75.0 ml; Total Saline Delivered: 55.0 ml RENAL FUNCTION: None required. The patient is less than 50 years old. RADIATION DOSE: CT Rad equipment meets quality standard of care and radiation dose reduction techniq ues were employed. CTDIvol: 10.2 - 64.6 mGy. DLP: 1515 mGy-cm. . LIMITATIONS: None. FINDINGS: SKULL BASE: Intact. MAJOR SALIVARY GLANDS: No solid or cystic masses. No inflammatory changes. LYMPHADENOPATHY: No adenopathy. MUCOSAL MASSES OR ASYMMETRY: No mucosal masses or asymmetry. LARYNX/CORDS: No abnormal findings. VASCULAR STRUCTURES: The major vessels are patent. LUNG APICES: Partial visualization of small bilateral pleural effusions. Centrilobular emphysema. BONES: Intact. THYROID: Normal size. No masses. PARANASAL SINUSES: Clear. OTHER: No other significant finding. IMPRESSION: NO SIGNIFICANT FINDING IN THE SOFT TISSUES OF THE NECK. BILATERAL PLEURAL EFFUSIONS INCOMPLETELY IMAGED. TECHNICAL DOCUMENTATION: JOB ID: [id number] Quality ID # [id number]: Final reports with documentation of one or more dose reduction techniques (e.g., Au tomated exposure control, adjustment of the mA and/or kV according to patient size, use of iterative reconstruction technique) 2010 [employer]- All Rights Reserved
[2017-03-29] MEDS: TIZANIDINE HCL 4 MG TABLET PO SCH (18:06)
[2017-03-29] MEDS: AZITHROMYCIN 250 MG TABLET PO SCH (21:54)
[2017-03-29] MEDS: QUETIAPINE FUMARATE 100 MG TABLET PO SCH (21:55)
[2017-03-29] MEDS: CEFTRIAXONE SODIUM 1,000 MG in DEXTROSE 5%-WATER 50 ML IV SCH (21:58)
[2017-03-30] MEDS: OXYCODONE HCL IR 5 MG TABLET PO SCH ×5 (00:10→23:02)
[2017-03-30] MEDS: LEVALBUTEROL HCL NEB 0.63 MG/3 ML AMPUL NEB SCH ×3 (01:16→14:23)
[2017-03-30] MEDS: HYDROMORPHONE HCL INJ/PF 2 MG/ML AMPULE IV PRN (04:09)
[2017-03-30] MEDS: GABAPENTIN 400 MG CAPSULE PO SCH ×3 (05:53→23:02)
[2017-03-30 06:35] LABS: ABSOLUTE LYMPHOCYTES (AUTO) 4.2 10^3/uL (0.5-4.7); ABSOLUTE MONOCYTES (AUTO) 0.6 10^3/uL (0.1-1.4); ABSOLUTE NEUT (AUTO) 9.2 10^3/uL (1.7-8.2); BASOPHILS % (AUTO) 0.1 % (0-2); EOSINOPHILS % (AUTO) 0.1 % (0-6); HEMATOCRIT 33.9 % (36.0-47.0); HEMOGLOBIN 11.4 g/dL (12.0-15.5); LYMPHOCYTES % (AUTO) 30.1 % (13-45); MEAN CORPUSCULAR HEMOGLOBIN 31.3 pg (27.0-33.4); MEAN CORPUSCULAR HGB CONC 33.6 g/dL (32.0-36.0); MEAN CORPUSCULAR VOLUME 93 fl (80-97); MONOCYTES % (AUTO) 4.2 % (3-13); PLATELET COUNT 340 10^3/uL (150-450); RED BLOOD COUNT 3.65 10^6/uL (3.72-5.28); RED CELL DISTRIBUTION WIDTH 14.7 % (11.5-14.0); SEGMENTED NEUTROPHILS % (AUTO) 65.5 % (42-78); TOTAL CELLS COUNTED % (AUTO) 100 %
[2017-03-30 06:54] LABS: ANION GAP 11 (5-19); BLOOD UREA NITROGEN 7 mg/dL (7-20); CALCIUM 8.9 mg/dL (8.4-10.2); CARBON DIOXIDE 25 mmol/L (22-30); CHLORIDE 108 mmol/L (98-107); GLUCOSE 94 mg/dL (75-110); MAGNESIUM 2.2 mg/dL (1.6-2.3); POTASSIUM 3.2 mmol/L (3.6-5.0); SODIUM 144.4 mmol/L (137-145)
[2017-03-30] MEDS ORDERED: POTASSIUM CHLORIDE 10 MEQ TABLET.SA PO ONE (09:30)
[2017-03-30] MEDS: SERTRALINE HCL 50 MG TABLET PO SCH (10:20)
[2017-03-30] MEDS: TIZANIDINE HCL 4 MG TABLET PO SCH ×3 (10:20→17:37)
[2017-03-30] MEDS: PANTOPRAZOLE SODIUM 40 MG VIAL IV SCH (10:20)
[2017-03-30] MEDS: GUAIFENESIN 600 MG TABLET.SA PO SCH ×2 (10:20→23:02)
[2017-03-30] MEDS: QUETIAPINE FUMARATE 25 MG TABLET PO SCH (10:20)
[2017-03-30] MEDS: NICOTINE 21 MG/24 HR PATCH.TD24 TD SCH (10:20)
[2017-03-30] MEDS: SENNOSIDES/DOCUSATE 8.6-50 MG 1 EACH TABLET PO SCH ×2 (10:20→17:37)
[2017-03-30] MEDS: ENOXAPARIN SODIUM INJ 40 MG/0.4 ML DISP.SYRIN SUBCUT SCH (10:21)
[2017-03-30] MEDS: PREDNISONE 20 MG TABLET PO SCH (10:21)
--- NOTE | 2017-03-30 13:00 | PDOC PROGRESS REPORT ---
Subjective Progress Note for:: 03/30/17 Subjective:: The patient is a 52-year-old female who has underlying fibromyalgia, anxiety, bipolar disorder, COPD, osteoarthritis, chronic narcotic use who presented to the emergency department yesterday with chest pain. She was admitted for pneumonia. She briefly had a history of atrial fibrillation. She was evaluated by cardiology with a stress test and echocardiogram. These tests are fairly unremarkable. Dr. Lazar does not feel that chronic anticoagulation is needed because she has a low chads score. She continues on IV antibiotics at this time for pneumonia. She also continues on IV corticosteroids for asthma/ COPD with exacerbation. Yesterday, I was notified by the microbiology laboratory that 1 out of 2 blood culture bottles is growing Streptococcus anginosus. Patient states that she is feeling better. Her cough is significantly improved. Her chest pain has lessened substantially. She is also breathing better. She notes no new acute skin lesions or rashes. She has not had any instrumentation to her back for over 2 years. Today, she is asking to go home. I told her that she has a bacteremia that can be very serious and that I expect that she will be in the hospital for IV antibiotics. Again, she stressed the fact that she feels well and wants to go home. Reason For Visit: PNEUMONIA,NEW ONSET A-FIB Physical Exam Vital Signs: Temp Pulse Resp BP Pulse Ox 98.2 F 58 L 16 146/76 H 98 03/30/17 08:00 03/30/17 08:01 03/30/17 08:01 03/30/17 08:00 03/30/17 08:00 Intake & Output 03/29/17 03/30/17 03/31/17 06:59 06:59 06:59 Intake Total 2321 1375 Output Total 400 900 Balance 1921 475 Weight 72.9 kg 70.6 kg Additional comments: Patient appears chronically ill, but nontoxic. Her facial appearance is unremarkable. I evaluated her oropharynx again. She does not have any pustular lesions or exudates. Her neck is supple. She does not have any cervical lymphadenopathy. Today, her lungs are clear to auscultation bilaterally without wheezing. Her cardiac exam demonstrates a regular rate and rhythm without murmurs, gallops or rubs. The abdomen is soft and flat. Bowel sounds are present in the lower quadrants. She does not have any guarding or rebound noted and there are no hernias or masses present. The lower extremities are warm to touch without edema. The patient has some muscle wasting of the extremities. Her skin overall is pallorous but she has no lesions or rashes present. She has no point tenderness over the vertebrae. Results Laboratory Results: 03/30/17 05:18 03/30/17 05:18 03/30/17 03/30/17 05:18 05:18 WBC 14.0 H RBC 3.65 L Hgb 11.4 L Hct 33.9 L MCV 93 MCH 31.3 MCHC 33.6 RDW 14.7 H Plt Count 340 Seg Neutrophils % 65.5 Lymphocytes % 30.1 Monocytes % 4.2 Eosinophils % 0.1 Basophils % 0.1 Absolute Neutrophils 9.2 H Absolute Lymphocytes 4.2 Absolute Monocytes 0.6 Absolute Eosinophils 0.0 Absolute Basophils 0.0 Sodium 144.4 Potassium 3.2 L Chloride 108 H Carbon Dioxide 25 Anion Gap 11 BUN 7 Creatinine 0.54 Est GFR ( Amer) > 60 Est GFR (Non-Af Amer) > 60 Glucose 94 Calcium 8.9 Magnesium 2.2 03/27/17 03/27/17 03/27/17 01:55 08:46 15:30 Troponin I < 0.012 < 0.012 < 0.012 Impressions: Chest X-Ray 03/26/17 19:22 IMPRESSION: Left basilar pneumonitis. Chest/Abdomen CTA 03/26/17 22:15 IMPRESSION: No pulmonary emboli. Mosaic appearance of the lungs with minimal basilar opacities appear Head CT 03/29/17 00:00 IMPRESSION: NORMAL BRAIN CT WITHOUT AND WITH CONTRAST. EVIDENCE OF ACUTE STROKE: NO. Soft Tissue Neck CT 03/29/17 00:00 IMPRESSION: NO SIGNIFICANT FINDING IN THE SOFT TISSUES OF THE NECK. BILATERAL PLEURAL EFFUSIONS INCOMPLETELY IMAGED. Assessment & Plan - Diagnosis (1) Chest pain Qualifiers: Chest pain type: unspecified Qualified Code(s): R07.9 - Chest pain, unspecified Is this a current diagnosis for this admission?: Yes Plan: Based on her current evaluation this does not appear to be associated with underlying cardiac disease, however, Dr. Lazar does want to see the patient after discharge. The etiology of the chest pain certainly could be her pneumonia/bronchospasm and other aggravating factors such as her fibromyalgia. (2) High blood sugar Is this a current diagnosis for this admission?: Yes Plan: This was an isolated value. Repeat is 122. Hemoglobin A1c is normal. (3) Hypotension Qualifiers: Hypotension type: unspecified hypotension type Qualified Code(s): I95.9 - Hypotension, unspecified Is this a current diagnosis for this admission?: Yes Plan: Resolved with fluids. (4) New onset a-fib Is this a current diagnosis for this admission?: Yes Plan: Possibly associated with underlying stress due to pneumonia, hypotension. Patient does not appear to need chronic anticoagulation. (5) Pneumonia Qualifiers: Pneumonia type: due to unspecified organism Laterality: bilateral Lung location: lower lobe of lung Qualified Code(s): J18.9 - Pneumonia, unspecified organism Is this a current diagnosis for this admission?: Yes Plan: Patient is receiving azithromycin and ceftriaxone. (6) Tobacco abuse Is this a current diagnosis for this admission?: Yes Plan: Continue nicotine patch. (7) Hypothyroidism (acquired) Is this a current diagnosis for this admission?: Yes Plan: Patient was previously on medications for thyroid dysfunction but is no longer on medications. TSH is normal. (8) Chronic pain associated with significant psychosocial dysfunction Is this a current diagnosis for this admission?: Yes Plan: Patient is opioid dependent. Yesterday, I restarted the patient's Zanaflex. She has been receiving IV Dilaudid. I discontinued this drug this morning. She told me this morning that provided she is receiving the Zanaflex she does not think she needs the IV Dilaudid. (9) Fibromyalgia Is this a current diagnosis for this admission?: Yes Plan: Continue outpatient regimen for fibromyalgia. (10) Heartburn Is this a current diagnosis for this admission?: Yes Plan: Continue PPI (11) Metabolic acidosis Is this a current diagnosis for this admission?: Yes Plan: This was likely secondary to aggressive IV fluid hydration which was required on admission. Resolved on labs today. (12) Hypokalemia Is this a current diagnosis for this admission?: Yes Plan: Repleted again today. (13) Bacteremia Is this a current diagnosis for this admission?: Yes Plan: The patient's imaging studies are negative. She had a CTA of the chest and abdomen as well as a CT of the neck, soft tissue and CT of the brain with contrast. Her echocardiogram did not reveal any lesions concerning for endocarditis. At this time I have performed an infectious disease telephone consultation at [facility]. The physician agrees that she will need a minimum of 10 days of IV antibiotics. He agreed with continuing ceftriaxone once daily at 2 g. I have ordered another blood culture for today. We may be able to discharge the patient to home and have her come back once a day for 2 g of IV ceftriaxone. She may require a PICC line. This will depend on what the next blood culture demonstrates. - Time Time Spent with patient: 35 or more minutes - She required additional time today secondary to research of her diagnosis in consultation with an infectious disease specialist at [facility]. - Inpatient Certification Medical Necessity: Need Close Monitoring Due to Risk of Patient Decompensation, Need for IV Antibiotics
[2017-03-30] MEDS ORDERED: CEFTRIAXONE SODIUM IV SCH (13:01)
[2017-03-30] MEDS ORDERED: WATER IV SCH (13:01)
[2017-03-30] MEDS ORDERED: DEXTROSE 5% IV SCH (13:01)
[2017-03-30] MEDS ORDERED: LEVALBUTEROL HCL NEB 0.63 MG/3 ML AMPUL NEB PRN (15:00)
[2017-03-30] MEDS: FENTANYL 100 MCG/HR PATCH.TD72 TOP SCH (17:37)
[2017-03-30] MEDS: AZITHROMYCIN 250 MG TABLET PO SCH (23:01)
[2017-03-30] MEDS: CEFTRIAXONE 2 GM/D5W RTU 2 GM/50 ML RTUPB IV SCH (23:01)
[2017-03-30] MEDS: QUETIAPINE FUMARATE 100 MG TABLET PO SCH (23:02)
[2017-03-31] MEDS ORDERED: TIZANIDINE HCL 4 MG TABLET PO ONE (02:30)
[2017-03-31] MEDS: GABAPENTIN 400 MG CAPSULE PO SCH ×3 (05:30→21:51)
[2017-03-31] MEDS: OXYCODONE HCL IR 5 MG TABLET PO SCH ×4 (05:31→23:44)
[2017-03-31 05:37] LABS: ANION GAP 8 (5-19); BLOOD UREA NITROGEN 10 mg/dL (7-20); CALCIUM 8.9 mg/dL (8.4-10.2); CARBON DIOXIDE 26 mmol/L (22-30); CHLORIDE 108 mmol/L (98-107); GLUCOSE 85 mg/dL (75-110); POTASSIUM 3.1 mmol/L (3.6-5.0); SODIUM 141.6 mmol/L (137-145)
[2017-03-31] MEDS: ENOXAPARIN SODIUM INJ 40 MG/0.4 ML DISP.SYRIN SUBCUT SCH (09:19)
[2017-03-31] MEDS: POTASSIUM CHLORIDE 10 MEQ TABLET.SA PO SCH (09:19)
[2017-03-31] MEDS: GUAIFENESIN 600 MG TABLET.SA PO SCH ×2 (09:19→21:51)
[2017-03-31] MEDS: PREDNISONE 20 MG TABLET PO SCH (09:19)
[2017-03-31] MEDS: NICOTINE 21 MG/24 HR PATCH.TD24 TD SCH (10:10)
[2017-03-31] MEDS: SENNOSIDES/DOCUSATE 8.6-50 MG 1 EACH TABLET PO SCH ×2 (10:36→17:57)
[2017-03-31] MEDS: QUETIAPINE FUMARATE 25 MG TABLET PO SCH (10:37)
[2017-03-31] MEDS: SERTRALINE HCL 50 MG TABLET PO SCH (10:37)
[2017-03-31] MEDS: TIZANIDINE HCL 4 MG TABLET PO SCH ×3 (10:37→21:51)
--- NOTE | 2017-03-31 14:31 | PDOC PROGRESS REPORT ---
Subjective Progress Note for:: 03/31/17 Subjective:: The patient is a 52-year-old female who has underlying fibromyalgia, anxiety, bipolar disorder, COPD, osteoarthritis, chronic narcotic use who presented to the emergency department 03/27/17 with chest pain. She was admitted for pneumonia. She briefly had atrial fibrillation. She was evaluated by cardiology with a stress test and echocardiogram. These tests are fairly unremarkable. Dr. Lazar does not feel that chronic anticoagulation is needed because she has a low chads score. She continues on IV antibiotics at this time for pneumonia and bacteremia with Streptocoocus anginosus. She also continues on IV corticosteroids for asthma/COPD with exacerbation. Wednesday, I was notified by the microbiology laboratory that 1 out of 2 blood culture bottles is growing Streptococcus anginosus. The patient is asymptomatic and wishing to go home at this time. Unfortunately, I told her that she will require IV antibiotics for the Streptococcus anginosus. At this point time I plan is to continue azithromycin for total of 5 days and then continue therapy with ceftriaxone for at least 10 days. The dose should be 2 g every 24 hours. Please note that I have done imaging study of the chest, abdomen, head and neck. I do not find an abscess. I did discuss the case with an infectious disease specialist at [place] and he agrees that she is obligated to at least a 10 day course of IV antibiotics with ceftriaxone 2 g per day. If we go ahead and put a PICC line and I would recommend 14 days total. I did send another blood culture yesterday. If this is negative I would feel comfortable placing a PICC line and completing therapy with home IV antibiotics. The patient states that she feels that she would be able to administer the medication. Today is day 5 out of 5 for azithromycin. Ceftriaxone was initially started at 1 g per day. Day #1 of 2 grams ceftriaxone is 03/30/2017. Reason For Visit: PNEUMONIA,NEW ONSET A-FIB Physical Exam Vital Signs: Temp Pulse Resp BP Pulse Ox 97.4 F 65 17 105/70 97 03/31/17 12:10 03/31/17 12:10 03/31/17 12:10 03/31/17 12:10 03/31/17 12:10 Intake & Output 03/30/17 03/31/17 04/01/17 06:59 06:59 06:59 Intake Total 1375 1069 Output Total 900 200 Balance 475 869 Weight 70.6 kg 68.4 kg Additional comments: The patient was up in her room ambulating this morning. She does not appear to be septic or in any distress. Her facial appearance is unremarkable. The patient's neck is unremarkable her lungs are clear to auscultation bilaterally. Her cardiac exam is regular without murmurs, gallops or rubs. The abdomen is benign. The lower extremity's are warm to touch without edema. The skin is warm, dry and intact without lesions or rashes. Results Laboratory Results: 03/30/17 05:18 03/31/17 03:53 03/31/17 03:53 Sodium 141.6 Potassium 3.1 L Chloride 108 H Carbon Dioxide 26 Anion Gap 8 BUN 10 Creatinine 0.60 Est GFR ( Amer) > 60 Est GFR (Non-Af Amer) > 60 Glucose 85 Calcium 8.9 03/27/17 03/27/17 03/27/17 01:55 08:46 15:30 Troponin I < 0.012 < 0.012 < 0.012 Impressions: Chest X-Ray 03/26/17 19:22 IMPRESSION: Left basilar pneumonitis. Chest/Abdomen CTA 03/26/17 22:15 IMPRESSION: No pulmonary emboli. Mosaic appearance of the lungs with minimal basilar opacities appear Head CT 03/29/17 00:00 IMPRESSION: NORMAL BRAIN CT WITHOUT AND WITH CONTRAST. EVIDENCE OF ACUTE STROKE: NO. Soft Tissue Neck CT 03/29/17 00:00 IMPRESSION: NO SIGNIFICANT FINDING IN THE SOFT TISSUES OF THE NECK. BILATERAL PLEURAL EFFUSIONS INCOMPLETELY IMAGED. Assessment & Plan - Diagnosis (1) Chest pain Qualifiers: Chest pain type: unspecified Qualified Code(s): R07.9 - Chest pain, unspecified Is this a current diagnosis for this admission?: Yes Plan: Based on her current evaluation this does not appear to be associated with underlying cardiac disease, however, Dr. Lazar does want to see the patient after discharge. The etiology of the chest pain certainly could be her pneumonia/bronchospasm and other aggravating factors such as her fibromyalgia. (2) High blood sugar Is this a current diagnosis for this admission?: Yes Plan: This was an isolated value. Repeat is 122. Hemoglobin A1c is normal. (3) Hypotension Qualifiers: Hypotension type: unspecified hypotension type Qualified Code(s): I95.9 - Hypotension, unspecified Is this a current diagnosis for this admission?: Yes Plan: Resolved with fluids. (4) New onset a-fib Is this a current diagnosis for this admission?: Yes Plan: Possibly associated with underlying stress due to pneumonia, hypotension. Patient does not appear to need chronic anticoagulation. (5) Pneumonia Qualifiers: Pneumonia type: due to unspecified organism Laterality: bilateral Lung location: lower lobe of lung Qualified Code(s): J18.9 - Pneumonia, unspecified organism Is this a current diagnosis for this admission?: Yes Plan: Patient is receiving azithromycin and ceftriaxone. (6) Tobacco abuse Is this a current diagnosis for this admission?: Yes Plan: Continue nicotine patch. (7) Hypothyroidism (acquired) Is this a current diagnosis for this admission?: Yes Plan: Patient was previously on medications for thyroid dysfunction but is no longer on medications. TSH is normal. (8) Chronic pain associated with significant psychosocial dysfunction Is this a current diagnosis for this admission?: Yes Plan: Patient is opioid dependent. Yesterday, I restarted the patient's Zanaflex. She has been receiving IV Dilaudid. I discontinued this drug this morning. She told me this morning that provided she is receiving the Zanaflex she does not think she needs the IV Dilaudid. Overnight, the patient developed bradycardia on her dose of Zanaflex was decreased by 50%. (9) Fibromyalgia Is this a current diagnosis for this admission?: Yes Plan: Continue outpatient regimen for fibromyalgia. (10) Heartburn Is this a current diagnosis for this admission?: Yes Plan: Continue PPI (11) Metabolic acidosis Is this a current diagnosis for this admission?: Yes Plan: This was likely secondary to aggressive IV fluid hydration which was required on admission. Resolved. (12) Hypokalemia Is this a current diagnosis for this admission?: Yes Plan: Repleted again today. (13) Bacteremia Is this a current diagnosis for this admission?: Yes Plan: The patient's imaging studies are negative. She had a CTA of the chest and abdomen as well as a CT of the neck, soft tissue and CT of the brain with contrast. Her echocardiogram did not reveal any lesions concerning for endocarditis. At this time I have performed an infectious disease telephone consultation at [facility]. The physician agrees that she will need a minimum of 10 days of IV antibiotics. He agreed with continuing ceftriaxone once daily at 2 g. I have ordered another blood culture for today. We may be able to discharge the patient to home and have her come back once a day for 2 g of IV ceftriaxone. She may require a PICC line. This will depend on what the next blood culture demonstrates. - Time Time Spent with patient: 15-24 minutes - Inpatient Certification Medical Necessity: Need for IV Antibiotics
[2017-03-31] MEDS ORDERED: NORMAL SALINE 250 ML IV ONE (19:30)
[2017-03-31] MEDS: CEFTRIAXONE 2 GM/D5W RTU 2 GM/50 ML RTUPB IV SCH (21:51)
[2017-03-31] MEDS: AZITHROMYCIN 250 MG TABLET PO SCH (21:51)
[2017-03-31] MEDS: QUETIAPINE FUMARATE 100 MG TABLET PO SCH (21:51)
--- NOTE | 2017-03-31 23:12 | EKG REPORT ---
SEVERITY:- ABNORMAL ECG - SINUS RHYTHM FIRST DEGREE AV BLOCK : Confirmed by: Jeimy Lazar 31-Mar-2017 23:11:46
[2017-04-01 05:03] LABS: ABSOLUTE BASOPHILS # (AUTO) 0.1 10^3/uL (0.0-0.2); ABSOLUTE EOSINOPHILS # (AUTO) 0.3 10^3/uL (0.0-0.6); ABSOLUTE MONOCYTES (AUTO) 0.5 10^3/uL (0.1-1.4); TOTAL CELLS COUNTED % (AUTO) 100 %
[2017-04-01 05:06] LABS: ABSOLUTE LYMPHOCYTES (AUTO) 6.9 10^3/uL (0.5-4.7); BASOPHILS % (AUTO) 0.4 % (0-2); EOSINOPHILS % (AUTO) 1.8 % (0-6); HEMATOCRIT 37.6 % (36.0-47.0); HEMOGLOBIN 12.7 g/dL (12.0-15.5); LYMPHOCYTES % (AUTO) 50.2 % (13-45); MEAN CORPUSCULAR HEMOGLOBIN 31.4 pg (27.0-33.4); MEAN CORPUSCULAR HGB CONC 33.8 g/dL (32.0-36.0); MEAN CORPUSCULAR VOLUME 93 fl (80-97); MONOCYTES % (AUTO) 3.7 % (3-13); PLATELET COUNT 348 10^3/uL (150-450); RED BLOOD COUNT 4.06 10^6/uL (3.72-5.28); RED CELL DISTRIBUTION WIDTH 14.4 % (11.5-14.0); SEGMENTED NEUTROPHILS % (AUTO) 43.9 % (42-78); WHITE BLOOD COUNT 13.8 10^3/uL (4.0-10.5)
[2017-04-01 05:07] LABS: ANION GAP 6 (5-19); BLOOD UREA NITROGEN 12 mg/dL (7-20); CALCIUM 8.9 mg/dL (8.4-10.2); CARBON DIOXIDE 25 mmol/L (22-30); CHLORIDE 109 mmol/L (98-107); GLUCOSE 92 mg/dL (75-110); SODIUM 140.4 mmol/L (137-145)
[2017-04-01] MEDS: TIZANIDINE HCL 4 MG TABLET PO SCH ×3 (05:10→21:34)
[2017-04-01] MEDS: GABAPENTIN 400 MG CAPSULE PO SCH ×3 (05:10→21:34)
[2017-04-01] MEDS: OXYCODONE HCL IR 5 MG TABLET PO SCH ×4 (05:10→23:33)
[2017-04-01] MEDS: QUETIAPINE FUMARATE 25 MG TABLET PO SCH (09:23)
[2017-04-01] MEDS: PREDNISONE 20 MG TABLET PO SCH (09:23)
[2017-04-01] MEDS: SERTRALINE HCL 50 MG TABLET PO SCH (09:23)
[2017-04-01] MEDS: GUAIFENESIN 600 MG TABLET.SA PO SCH ×2 (09:23→21:34)
[2017-04-01] MEDS: ENOXAPARIN SODIUM INJ 40 MG/0.4 ML DISP.SYRIN SUBCUT SCH (09:23)
[2017-04-01] MEDS: SENNOSIDES/DOCUSATE 8.6-50 MG 1 EACH TABLET PO SCH ×2 (09:23→17:18)
[2017-04-01] MEDS: POTASSIUM CHLORIDE 10 MEQ TABLET.SA PO SCH (09:24)
[2017-04-01] MEDS: NICOTINE 21 MG/24 HR PATCH.TD24 TD SCH (09:25)
--- NOTE | 2017-04-01 12:20 | PDOC PROGRESS REPORT ---
Subjective Progress Note for:: 04/01/17 Subjective:: Denies any complaints. Reason For Visit: PNEUMONIA,NEW ONSET A-FIB Physical Exam Vital Signs: Temp Pulse Resp BP Pulse Ox 97.6 F 66 18 103/87 H 99 04/01/17 11:22 04/01/17 11:22 04/01/17 11:22 04/01/17 11:22 04/01/17 11:22 Intake & Output 03/31/17 04/01/17 04/02/17 06:59 06:59 06:59 Intake Total 1069 2145 Output Total 200 600 Balance 869 1545 Weight 68.4 kg 68.1 kg General appearance: PRESENT: no acute distress Eye exam: PRESENT: conjunctiva pink. ABSENT: scleral icterus Mouth exam: PRESENT: moist, tongue midline Neck exam: ABSENT: JVD Respiratory exam: PRESENT: clear to auscultation kevin. ABSENT: rales, rhonchi, wheezes Cardiovascular exam: PRESENT: RRR. ABSENT: diastolic murmur, rubs, systolic murmur GI/Abdominal exam: PRESENT: normal bowel sounds, soft. ABSENT: distended, guarding, mass, organolmegaly, rebound, tenderness Extremities exam: ABSENT: calf tenderness, clubbing, pedal edema Neurological exam: PRESENT: alert, awake, oriented to person, oriented to place , oriented to time, oriented to situation, CN II-XII grossly intact. ABSENT: motor sensory deficit Psychiatric exam: PRESENT: appropriate affect Results Laboratory Results: 04/01/17 04:07 04/01/17 04:07 04/01/17 04/01/17 04:07 04:07 WBC 13.8 H RBC 4.06 Hgb 12.7 Hct 37.6 MCV 93 MCH 31.4 MCHC 33.8 RDW 14.4 H Plt Count 348 Seg Neutrophils % 43.9 Lymphocytes % 50.2 H Monocytes % 3.7 Eosinophils % 1.8 Basophils % 0.4 Absolute Neutrophils 6.0 Absolute Lymphocytes 6.9 H Absolute Monocytes 0.5 Absolute Eosinophils 0.3 Absolute Basophils 0.1 Sodium 140.4 Potassium 4.0 Chloride 109 H Carbon Dioxide 25 Anion Gap 6 BUN 12 Creatinine 0.66 Est GFR ( Amer) > 60 Est GFR (Non-Af Amer) > 60 Glucose 92 Calcium 8.9 03/27/17 02:55 Blood Blood Culture - Final NO GROWTH IN 5 DAYS 03/27/17 03/27/17 03/27/17 01:55 08:46 15:30 Troponin I < 0.012 < 0.012 < 0.012 Impressions: Chest X-Ray 03/26/17 19:22 IMPRESSION: Left basilar pneumonitis. Chest/Abdomen CTA 03/26/17 22:15 IMPRESSION: No pulmonary emboli. Mosaic appearance of the lungs with minimal basilar opacities appear Head CT 03/29/17 00:00 IMPRESSION: NORMAL BRAIN CT WITHOUT AND WITH CONTRAST. EVIDENCE OF ACUTE STROKE: NO. Soft Tissue Neck CT 03/29/17 00:00 IMPRESSION: NO SIGNIFICANT FINDING IN THE SOFT TISSUES OF THE NECK. BILATERAL PLEURAL EFFUSIONS INCOMPLETELY IMAGED. Assessment & Plan - Diagnosis (1) Bacteremia Is this a current diagnosis for this admission?: Yes Plan: The patient has grown out strep and stenosis. Patient will need 10 days of IV antibiotics. Once her blood cultures are negative we will place a PICC line and send her home to come back for Rocephin 2 g IV daily. (2) Pneumonia Qualifiers: Pneumonia type: due to unspecified organism Laterality: bilateral Lung location: lower lobe of lung Qualified Code(s): J18.9 - Pneumonia, unspecified organism Is this a current diagnosis for this admission?: Yes Plan: Continue with Rocephin. Has completed Zithromax. (3) Chest pain Qualifiers: Chest pain type: unspecified Qualified Code(s): R07.9 - Chest pain, unspecified Is this a current diagnosis for this admission?: Yes Plan: Resolved. Is likely related to her fibromyalgia. (4) Heartburn Is this a current diagnosis for this admission?: Yes Plan: Resolved (5) High blood sugar Is this a current diagnosis for this admission?: Yes Plan: She had an elevated blood sugar 1. No further evidence for elevated blood sugars. (6) Hypokalemia Is this a current diagnosis for this admission?: Yes Plan: Resolved. (7) Hypotension Qualifiers: Hypotension type: unspecified hypotension type Qualified Code(s): I95.9 - Hypotension, unspecified Is this a current diagnosis for this admission?: Yes Plan: Continues to have orthostatic hypotension. She is asymptomatic with this however. Most likely is medication related. (8) Metabolic acidosis Is this a current diagnosis for this admission?: Yes Plan: Resolved. (9) New onset a-fib Is this a current diagnosis for this admission?: Yes Plan: Most likely was secondary to the stress of the acute infection. (10) Tobacco abuse Is this a current diagnosis for this admission?: Yes Plan: She has been encouraged to quit (11) Hypothyroidism (acquired) Is this a current diagnosis for this admission?: Yes Plan: Continue with Synthroid. (12) Chronic pain associated with significant psychosocial dysfunction Is this a current diagnosis for this admission?: Yes Plan: Patient is on a Duragesic patch as well as oral narcotics. (13) Fibromyalgia Is this a current diagnosis for this admission?: Yes Plan: Continue with Zanaflex. - Time Time Spent with patient: 25-34 minutes - Inpatient Certification Medical Necessity: Need for IV Antibiotics
[2017-04-01] MEDS: AZITHROMYCIN 250 MG TABLET PO SCH (21:34)
[2017-04-01] MEDS: CEFTRIAXONE 2 GM/D5W RTU 2 GM/50 ML RTUPB IV SCH (21:34)
[2017-04-01] MEDS: QUETIAPINE FUMARATE 100 MG TABLET PO SCH (21:34)
[2017-04-02] MEDS: GABAPENTIN 400 MG CAPSULE PO SCH ×2 (05:39→13:28)
[2017-04-02] MEDS: OXYCODONE HCL IR 5 MG TABLET PO SCH ×2 (05:40→11:42)
[2017-04-02] MEDS: TIZANIDINE HCL 4 MG TABLET PO SCH ×2 (05:45→13:28)
[2017-04-02 06:30] LABS: ABSOLUTE BASOPHILS # (AUTO) 0.1 10^3/uL (0.0-0.2); ABSOLUTE EOSINOPHILS # (AUTO) 0.3 10^3/uL (0.0-0.6); ABSOLUTE MONOCYTES (AUTO) 0.7 10^3/uL (0.1-1.4); ABSOLUTE NEUT (AUTO) 6.9 10^3/uL (1.7-8.2); BASOPHILS % (AUTO) 0.7 % (0-2); EOSINOPHILS % (AUTO) 2.1 % (0-6); HEMATOCRIT 40.3 % (36.0-47.0); HEMOGLOBIN 13.6 g/dL (12.0-15.5); LYMPHOCYTES % (AUTO) 49.7 % (13-45); MEAN CORPUSCULAR HEMOGLOBIN 31.5 pg (27.0-33.4); MEAN CORPUSCULAR HGB CONC 33.8 g/dL (32.0-36.0); MEAN CORPUSCULAR VOLUME 93 fl (80-97); MONOCYTES % (AUTO) 4.6 % (3-13); PLATELET COUNT 404 10^3/uL (150-450); RED BLOOD COUNT 4.33 10^6/uL (3.72-5.28); RED CELL DISTRIBUTION WIDTH 14.5 % (11.5-14.0); SEGMENTED NEUTROPHILS % (AUTO) 42.9 % (42-78); TOTAL CELLS COUNTED % (AUTO) 100 %
[2017-04-02 06:38] LABS: ANION GAP 9 (5-19); BLOOD UREA NITROGEN 12 mg/dL (7-20); CALCIUM 9.1 mg/dL (8.4-10.2); CARBON DIOXIDE 27 mmol/L (22-30); CHLORIDE 107 mmol/L (98-107); GLUCOSE 82 mg/dL (75-110); POTASSIUM 3.8 mmol/L (3.6-5.0); SODIUM 142.6 mmol/L (137-145)
--- NOTE | 2017-04-02 09:59 | RADIOLOGY REPORT (SQ) ---
EXAM DESCRIPTION: PICC INSERTION; FLUORO/CV PLACEMENT; U/S GUIDE FOR VASCULAR ACCESS COMPLETED DATE/TIME: 04/02/2017 9:33 am REASON FOR STUDY: [facility] iv antibiotics; IV ABX COMPARISON: CT chest 03/26/2017 FLUOROSCOPY TIME: 41 seconds 1 digital fluoro image and 1 ultrasound image saved to PACS. TECHNIQUE: Fluoroscopic and ultrasound guided PICC placement. LIMITATIONS: None. PROCEDURE: After written consent and assessment were obtained, the patient was brought into the fluo roscopy room and place supine on the table. Ultrasound was used on the patient's left arm for PICC a ccess. The left arm was prepped and draped in a sterile fashion along with the ultrasound probe. The entry site was anesthetized with 1% lidocaine. A 21 gauge 7 cm needle was advanced through the skin a nd into the basilic vein under live ultrasound guidance. An ultrasound image was saved to PACS confi rming access site. A .018 guide wire was then inserted through the needle and into the venous system . The needle was the removed and an 11 blade scalpel was used to make a 1cm skin incision. A 5 fr pe el-away sheath was advanced over the wire and into the venous system. A measurement was then made usi ng the existing wire and live fluoroscopic guidance. The wire was then removed and the trimmed. The P ICC was advanced through the peel-away sheath and into the venous system. The peel-away sheath was re moved and the catheter was adhered to the patients arm with a stat lock. The catheter was then aspira ginger and flushed and a sterile bandage was placed over the access site. A fluoroscopic spot image was saved to PACS confirming the catheter tip within the superior vena cava. IMPRESSION: SUCCESSFUL PLACEMENT OF A 5 FR DUAL LUMEN 38 CM PICC IN THE LEFT BASILIC VEIN. COMMENT: Patient medication list reviewed: Yes- Quality ID# [id number]:Eligible professional attests to doc umenting in the medical record they obtained, updated, or reviewed the patient's current medications. . Quality ID 145: Final reports for procedures using fluoroscopy that document radiation exposure claude antonio, or exposure time and number of fluorographic images (if radiation exposure indices are not avail able) Quality ID #76: The patient was prepped and draped using maximum sterile barrier technique including cap, mask, sterile gown, sterile gloves, a large sterile sheet, hand hygiene, and 2% Chlorhexidine fo r cutaneous antisepsis. When ultrasound is used, sterile ultrasound techniques are followed requiring sterile gel and sterile probes. TECHNICAL DOCUMENTATION: JOB ID: [id number] [employer]- All Rights Reserved
[2017-04-02] MEDS: POTASSIUM CHLORIDE 10 MEQ TABLET.SA PO SCH (10:05)
[2017-04-02] MEDS: GUAIFENESIN 600 MG TABLET.SA PO SCH (10:05)
[2017-04-02] MEDS: SENNOSIDES/DOCUSATE 8.6-50 MG 1 EACH TABLET PO SCH (10:06)
[2017-04-02] MEDS: SERTRALINE HCL 50 MG TABLET PO SCH (10:06)
[2017-04-02] MEDS: PREDNISONE 20 MG TABLET PO SCH (10:06)
[2017-04-02] MEDS: QUETIAPINE FUMARATE 25 MG TABLET PO SCH (10:06)
[2017-04-02] MEDS: NICOTINE 21 MG/24 HR PATCH.TD24 TD SCH (10:07)
[2017-04-02] MEDS: ENOXAPARIN SODIUM INJ 40 MG/0.4 ML DISP.SYRIN SUBCUT SCH (10:07)
--- NOTE | 2017-04-02 12:01 | PDOC DISCHARGE SUMMARY ---
General - Admit/Disc Date/PCP Admission Date/Primary Care Provider: 03/27/17 00:24 ANGÉLICA HUGHES MD Discharge Date: 04/02/17 - Discharge Diagnosis (1) Bacteremia Is this a current diagnosis for this admission?: Yes Summary: Secondary to pneumonia with strep anginosus. Will get a total of 14 days of Rocephin from the last negative blood culture. Patient is to get 2 g IV daily with last dose to be given on April 10 (2) Pneumonia Is this a current diagnosis for this admission?: Yes Summary: Patient has grown out strep (3) Chest pain Is this a current diagnosis for this admission?: Yes Summary: Negative stress test. Echocardiogram shows mild pulmonary hypertension. (4) Heartburn Is this a current diagnosis for this admission?: Yes (5) High blood sugar Is this a current diagnosis for this admission?: Yes (6) Hypokalemia Is this a current diagnosis for this admission?: Yes (7) Hypotension Is this a current diagnosis for this admission?: Yes (8) Metabolic acidosis Is this a current diagnosis for this admission?: Yes (9) New onset a-fib Is this a current diagnosis for this admission?: Yes Summary: Patient is a low chads score and will not be anticoagulated (10) Tobacco abuse Is this a current diagnosis for this admission?: Yes (11) Hypothyroidism (acquired) Is this a current diagnosis for this admission?: Yes (12) Chronic pain associated with significant psychosocial dysfunction Is this a current diagnosis for this admission?: Yes (13) Fibromyalgia Is this a current diagnosis for this admission?: Yes - Additional Information Resuscitation Status: Full Code Discharge Diet: Regular Discharge Activity: Activity As Tolerated Prescriptions: Ceftriaxone 2 gm/D5w RTU [Rocephin RTU 2 gm/D5w 50 ml Premix Bag] 2 gm IV DAILY #8 rtupb Potassium Chloride [Klor-Con 10 Meq Tablet.sa] 40 meq PO DAILY #30 tablet.sa Prednisone [Deltasone 20 mg Tablet] 20 mg PO DAILY #7 tablet Home Medications: Gabapentin 800 mg PO TID 01/22/13 Quetiapine Fumarate [Seroquel 100 mg Tablet] 100 mg PO QHS 01/22/13 Oxycodone HCl 20 mg PO QID 10/30/13 Fentanyl [Duragesic 100 Mcg/Hr Transdermal Patch] 100 mcg TOP Q3D 03/27/17 Quetiapine Fumarate [Seroquel 25 mg Tablet] 25 mg PO DAILY 03/27/17 Sertraline HCl [Zoloft] 25 mg PO DAILY 03/27/17 Tizanidine HCl [Zanaflex] 4 mg PO TID 03/27/17 Ceftriaxone 2 gm/D5w RTU [Rocephin RTU 2 gm/D5w 50 ml Premix Bag] 2 gm IV DAILY #8 rtupb 04/02/17 Flu Vacc [id number] Up/Pf [Fluzone Adlt Quad [id number] Vac 0.5 ml Syr] 0.5 ml IM .DISCHARGE PRN disp.syrin 04/02/17 Nicotine [Nicoderm 21 mg/24 Hr Transderm Patch] 1 each TD DAILY patch.td24 Potassium Chloride [Klor-Con 10 Meq Tablet.sa] 40 meq PO DAILY #30 tablet.sa Prednisone [Deltasone 20 mg Tablet] 20 mg PO DAILY #7 tablet 04/02/17 History of Present Illness History of Present Illness: NANCI DOMINGO is a 52 year old female with a history of fibro-myalgia, bipolar disorder and COPD who presented to emergency room with complaints of chest pain. The patient had a cough productive of yellowish brown sputum for several days prior to presentation. The patient also did have some nausea and heartburn. Patient is admitted for chest pain and had been also found to have bilateral lobe pneumonia along with new onset atrial fibrillation. Hospital Course Hospital Course: 52-year-old female who presented with chest pain and was found to have bilateral pneumonia. The patient was treated with IV antibiotics and eventually grew out strep and stenosis from blood cultures. The patient after discussion with infectious disease department [facility] was changed to Rocephin 2 g IV daily for total of 14 days from the time of a negative culture. Patient's last dose of antibiotics will be April 10. The patient because of the chest pain was evaluated by radiology. They performed a stress test that showed no evidence for reversible ischemia. She also had an echocardiogram that showed mild pulmonary hypertension but otherwise unremarkable. The patient had a PICC line placed and will be sent home to complete her antibiotics at home. His other medical problems all been stable during this hospitalization. She was noted to have some orthostatic hypotension but she is asymptomatic with this and may be related to her chronic narcotic medications that she takes. Physical Exam Vital Signs: Temp Pulse Resp BP Pulse Ox 98.3 F 75 18 84/58 L 98 04/02/17 07:32 04/02/17 07:34 04/02/17 07:34 04/02/17 07:34 04/02/17 07:34 Intake & Output 04/01/17 04/02/17 04/03/17 06:59 06:59 06:59 Intake Total 2145 1327 Output Total 600 Balance 1545 1327 Weight 68.1 kg 68.1 kg General appearance: PRESENT: no acute distress Eye exam: PRESENT: conjunctiva pink, scleral icterus Mouth exam: PRESENT: moist, tongue midline Neck exam: ABSENT: JVD Respiratory exam: PRESENT: clear to auscultation kevin. ABSENT: rales, rhonchi, wheezes Cardiovascular exam: PRESENT: RRR. ABSENT: diastolic murmur, rubs, systolic murmur GI/Abdominal exam: PRESENT: normal bowel sounds, soft. ABSENT: distended, guarding, mass, organolmegaly, rebound, tenderness Extremities exam: ABSENT: calf tenderness, clubbing, pedal edema Neurological exam: PRESENT: alert, awake, oriented to person, oriented to place , oriented to time, oriented to situation, CN II-XII grossly intact. ABSENT: motor sensory deficit Psychiatric exam: PRESENT: appropriate affect Skin exam: PRESENT: dry, intact, warm. ABSENT: cyanosis, rash Results Laboratory Results: 04/02/17 06:00 04/02/17 06:00 04/02/17 04/02/17 06:00 06:00 WBC 16.0 H RBC 4.33 Hgb 13.6 Hct 40.3 MCV 93 MCH 31.5 MCHC 33.8 RDW 14.5 H Plt Count 404 Seg Neutrophils % 42.9 Lymphocytes % 49.7 H Monocytes % 4.6 Eosinophils % 2.1 Basophils % 0.7 Absolute Neutrophils 6.9 Absolute Lymphocytes 8.0 H Absolute Monocytes 0.7 Absolute Eosinophils 0.3 Absolute Basophils 0.1 Sodium 142.6 Potassium 3.8 Chloride 107 Carbon Dioxide 27 Anion Gap 9 BUN 12 Creatinine 0.70 Est GFR ( Amer) > 60 Est GFR (Non-Af Amer) > 60 Glucose 82 Calcium 9.1 03/27/17 03/27/17 03/27/17 01:55 08:46 15:30 Troponin I < 0.012 < 0.012 < 0.012 Impressions: Chest X-Ray 03/26/17 19:22 IMPRESSION: Left basilar pneumonitis. Chest/Abdomen CTA 03/26/17 22:15 IMPRESSION: No pulmonary emboli. Mosaic appearance of the lungs with minimal basilar opacities appear Head CT 03/29/17 00:00 IMPRESSION: NORMAL BRAIN CT WITHOUT AND WITH CONTRAST. EVIDENCE OF ACUTE STROKE: NO. Soft Tissue Neck CT 03/29/17 00:00 IMPRESSION: NO SIGNIFICANT FINDING IN THE SOFT TISSUES OF THE NECK. BILATERAL PLEURAL EFFUSIONS INCOMPLETELY IMAGED. Guidance Fluoroscopy 04/02/17 00:00 IMPRESSION: SUCCESSFUL PLACEMENT OF A 5 FR DUAL LUMEN 38 CM PICC IN THE LEFT BASILIC VEIN. Interventional Vascular Procedure 04/02/17 00:00 IMPRESSION: SUCCESSFUL PLACEMENT OF A 5 FR DUAL LUMEN 38 CM PICC IN THE LEFT BASILIC VEIN. PICC Line Insertion 04/02/17 00:00 IMPRESSION: SUCCESSFUL PLACEMENT OF A 5 FR DUAL LUMEN 38 CM PICC IN THE LEFT BASILIC VEIN. Qualifiers PATEINT BEING DISCHARGED WITH ANY OF THE FOLLOWING DIAGNOSIS?: No Plan Discharge Plan: Patient is discharged home with home health for routine PICC line care along with 2 g Rocephin IV daily until April 10. Primary care in 1-2 weeks. Time Spent: Greater than 30 Minutes
[2017-04-02] MEDS ORDERED: NORMAL SALINE 10 ML SDV (AFTER EACH USE) IV PRN (12:04)
[2017-04-02 15:35] VITALS: BP 101/62
[2017-04-02] MEDS ORDERED: CEFTRIAXONE 2 GM/D5W RTU 2 GM/50 ML RTUPB IV ONE (16:00)
[2017-04-02] MEDS ORDERED: NORMAL SALINE 10 ML SDV (SCHEDULED) IV SCH (22:00)
== END 2017-04-02 16:52 | disposition home health service (06) | DRG 194 ==
LOC: ER 15:18 → EH 03-27 00:24 → 4N 03-27 19:30
PROVIDERS: ADMIT Family Medicine; ATTEND Family Medicine
PROC: 3E0234Z Introduction of Serum, Toxoid and Vaccine into Muscle, Percutaneous Approach (ICD-10-PCS; principal; 2017-04-02)
PROC: 02HV33Z Insertion of Infusion Device into Superior Vena Cava, Percutaneous Approach (ICD-10-PCS; 2017-04-02)
PROC: B518ZZA Fluoroscopy of Superior Vena Cava, Guidance (ICD-10-PCS; 2017-04-02)
PROC: B548ZZA Ultrasonography of Superior Vena Cava, Guidance (ICD-10-PCS; 2017-04-02)
DX: J15.4 Pneumonia due to other streptococci (principal); E87.2 Acidosis; I48.0 Paroxysmal atrial fibrillation; E87.6 Hypokalemia; I95.9 Hypotension, unspecified; R73.9 Hyperglycemia, unspecified; E03.9 Hypothyroidism, unspecified; G89.4 Chronic pain syndrome; R12 Heartburn; M79.7 Fibromyalgia; M19.90 Unspecified osteoarthritis, unspecified site; F31.9 Bipolar disorder, unspecified; F17.210 Nicotine dependence, cigarettes, uncomplicated; Z23 Encounter for immunization; Z71.6 Tobacco abuse counseling; Z79.891 Long term (current) use of opiate analgesic; Z79.52 Long term (current) use of systemic steroids; Z79.899 Other long term (current) drug therapy
CPT/HCPCS: 36415; 36569; 70470; 70491; 71045; 71275; 76937; 77001; 78452; 80048; 80053; 81001; 82550; 82553; 83036; 83605; 83735; 84443; 84484; 85025; 87040; 87077; 87086; 87186; 87804; 90686; 93005; 93010; 93017; 93306; 94799; 96374; 99285; A9500; C1769; J0280; J0456; J0696; J1170; J1642; J1650; J1885; J2785; J2920; J3490; J7030; J7060; J7512; J7614; Q9969; S0164

== ENCOUNTER 2019-02-18 13:52 | Observation (INO) | payer MEDICAID ==
[2019-02-18 14:41] LABS: ABSOLUTE BASOPHILS # (AUTO) 0.1 10^3/uL (0.0-0.2); ABSOLUTE EOSINOPHILS # (AUTO) 0.1 10^3/uL (0.0-0.6); ABSOLUTE LYMPHOCYTES (AUTO) 3.3 10^3/uL (0.5-4.7); ABSOLUTE MONOCYTES (AUTO) 0.4 10^3/uL (0.1-1.4); ABSOLUTE NEUT (AUTO) 5.1 10^3/uL (1.7-8.2); BASOPHILS % (AUTO) 0.6 % (0-2); EOSINOPHILS % (AUTO) 1.4 % (0-6); HEMOGLOBIN 13.8 g/dL (12.0-15.5); LYMPHOCYTES % (AUTO) 36.7 % (13-45); MEAN CORPUSCULAR HEMOGLOBIN 29.2 pg (27.0-33.4); MEAN CORPUSCULAR HGB CONC 33.8 g/dL (32.0-36.0); MEAN CORPUSCULAR VOLUME 87 fl (80-97); MONOCYTES % (AUTO) 4.4 % (3-13); PLATELET COUNT 354 10^3/uL (150-450); RED BLOOD COUNT 4.73 10^6/uL (3.72-5.28); SEGMENTED NEUTROPHILS % (AUTO) 56.9 % (42-78); TOTAL CELLS COUNTED % (AUTO) 100 %; WHITE BLOOD COUNT 8.9 10^3/uL (4.0-10.5)
--- NOTE | 2019-02-18 15:25 | RADIOLOGY REPORT (SQ) ---
EXAM DESCRIPTION: CHEST SINGLE VIEW COMPLETED DATE/TIME: 02/18/2019 3:07 pm REASON FOR STUDY: chest pain COMPARISON: Chest x-ray 03/26/2017. EXAM PARAMETERS: NUMBER OF VIEWS: One view. TECHNIQUE: Single frontal radiographic view of the chest acquired. RADIATION DOSE: NA LIMITATIONS: None. FINDINGS: LUNGS AND PLEURA: No consolidation, pneumothorax or pleural effusion. MEDIASTINUM AND HILAR STRUCTURES: No masses. Contour normal. HEART AND VASCULAR STRUCTURES: Heart normal in size. Normal vasculature. BONES: No acute findings. IMPRESSION: NO ACUTE RADIOGRAPHIC FINDING IN THE CHEST. TECHNICAL DOCUMENTATION: JOB ID: [id number] [employer]- All Rights Reserved Reading location - IP/workstation name: [email or web address]
[2019-02-18 15:45] LABS: ALKALINE PHOSPHATASE 100 U/L (38-126); ANION GAP 12 (5-19); ASPARTATE AMINO TRANSFERASE 33 U/L (14-36); BILIRUBIN,DIRECT 0.2 mg/dL (0.0-0.4); BILIRUBIN,TOTAL 0.6 mg/dL (0.2-1.3); BLOOD UREA NITROGEN 12 mg/dL (7-20); CALCIUM 9.6 mg/dL (8.4-10.2); CARBON DIOXIDE 24 mmol/L (22-30); CHLORIDE 104 mmol/L (98-107); CREATINE KINASE 27 U/L (30-135); GLUCOSE 136 mg/dL (75-110); POTASSIUM 3.9 mmol/L (3.6-5.0); TOTAL PROTEIN 7.6 g/dL (6.3-8.2)
[2019-02-18 15:56] LABS: CREATINE KINASE MB < 0.22 ng/mL (<4.55); TROPONIN I < 0.012 ng/mL
--- NOTE | 2019-02-18 16:12 | ER Document Report ---
ED General - General Chief Complaint: Chest Pain Stated Complaint: CHEST PAIN,CHEST PRESSURE Time Seen by Provider: 02/18/19 15:35 Primary Care Provider: ANGÉLICA HUGHES MD [Primary Care Provider] - Follow up as needed TRAVEL OUTSIDE OF THE [place] IN LAST 30 DAYS: No - HPI Notes: Ms. Bryson is a 54-year-old female presenting for evaluation of chest pain which began earlier this afternoon. Pain is described as dull and central chest area radiating into the neck and left shoulder and is now beginning to radiate also to right side of chest. Intensity described as 4/10. We note that this patient was admitted under similar circumstances within the last year and had a negative cardiac work-up including a treadmill test. She has a history of chronic pain syndrome and is on chronic Dilaudid. Patient denies associated nausea or vomiting but was mildly dyspneic at onset of her pain. She denies fever chills. She denies sputum production. She denies any past history of thromboembolic disease or coronary disease. No known history of coronary disease. No family history of coronary disease. Has history of hyperlipidemia. No known history of diabetes mellitus. No known history of hypertension. Half pack per day smoker. HEART Score: HISTORY 2 highly suspicious ECG 0 normal AGE 1 RISK FACTORS 2 TROPONIN 0 TOTAL: 5 If HEART score is = 3 AND both tronponin measurments are normal, the 30 day risk of a major adverse cardiac event (all-cause mortality, myocardia infarction or need for coronary revscularization) is < 1% (Sensitivity 100%, NPV 100%). Duration persistent Quality dull Location as noted above Radiation as noted above Precipitating factors occurred at rest Relieving factors none Severity 4/10 Pertinent prior history as noted above No orthopnea - Related Data Allergies/Adverse Reactions: No Known Allergies Allergy (Verified 01/19/13 08:35) Past Medical History - Social History Smoking Status: Current Every Day Smoker Family History: Arthritis, Other - Patient's mother is alive and well at 72 years old Patient has suicidal ideation: No Patient has homicidal ideation: No - Past Medical History Cardiac Medical History: Denies: Hx Coronary Artery Disease, Hx Heart Attack, Hx Hypertension Pulmonary Medical History: Reports: Hx Bronchitis Denies: Hx Asthma, Hx COPD, Hx Pneumonia, Hx Tuberculosis Neurological Medical History: Denies: Hx Cerebrovascular Accident, Hx Seizures Endocrine Medical History: Reports: Hx Hypothyroidism Renal/ Medical History: Denies: Hx Peritoneal Dialysis Musculoskeletal Medical History: Reports Hx Arthritis - OA, Reports Hx Fi bromyalgia, Reports Hx Musculoskeletal Deformity Psychiatric Medical History: Reports: Hx Bipolar Disorder, Hx Depression Past Surgical History: Reports: Hx Hysterectomy, Hx Orthopedic Surgery - Immunizations Hx Diphtheria, Pertussis, Tetanus Vaccination: Yes Hx Pneumococcal Vaccination: 09/12/09 Review of Systems - Review of Systems Notes: Constitutional: Negative for fever. HENT: Negative for sore throat. Eyes: Negative for visual changes. Cardiovascular: As per HPI. Respiratory: Negative for shortness of breath. Gastrointestinal: Negative for abdominal pain, vomiting or diarrhea. Genitourinary: Negative for dysuria. Musculoskeletal: Negative for back pain. Skin: Negative for rash. Neurological: Negative for headaches, weakness or numbness. 10 point ROS negative except as marked above and in HPI. Physical Exam - Vital signs Vitals: Pulse Ox 98 02/18/19 13:53 - Notes Notes: GENERAL: Well-developed well-nourished appearing in no acute distress. SKIN: Good turgor no rashes. HEAD: Normocephalic atraumatic. EYES: PERRLA. Conjunctivae and sclerae clear. EARS: CANALS AND TMS CLEAR. NOSE: CLEAR. MOUTH: Moist mucosa. Good dentition. No stridor or edema. No drooling. NECK: Supple. No masses or thyromegaly. No adenopathy. Carotids 2+ without bruits. No JVD. BACK: Symmetrical without tenderness. CHEST: Respirations unlabored. Breath sounds clear and symmetrical. HEART: Regular rhythm. No murmur gallop or rub. ABDOMEN: Soft nontender without masses, organomegaly or rebound. Bowel sounds normally active. No bruits. GENITALIA: Deferred. EXTREMITIES: No edema. No calf tenderness. Cap refill less than 1.5 seconds. Dorsalis pedis and posterior tibial pulses 3+ and symmetrical. NEUROLOGICAL: GCS 15. Alert and oriented x3. Normal gait. Fluent speech. Cranial nerves II through XII intact. Sensorimotor and cerebellar normal. Normal tone. Course - Re-evaluation Re-evalutation: 02/18/19 17:38 Initial troponin is normal. D-dimer is mildly elevated 1.4. CTA of the chest has been requested. Findings are presented to Dr. Alfredo who will admit. - Vital Signs Vital signs: Temp Pulse Resp BP Pulse Ox 98.2 F 108 H 17 126/84 H 95 02/18/19 14:16 02/18/19 14:16 02/18/19 15:01 02/18/19 15:00 02/18/19 15:01 - Laboratory Result Diagrams: 02/18/19 14:25 02/18/19 14:25 Laboratory results interpreted by me: 02/18/19 02/18/19 02/18/19 14:25 14:25 14:25 RDW 17.0 H D-Dimer 1.40 H Glucose 136 H Lactic Acid Creatine Kinase 27 L 02/18/19 14:25 RDW D-Dimer Glucose Lactic Acid 2.2 H Creatine Kinase - EKG Interpretation by Me Additional EKG results interpreted by me: 02/18/19 16:15 Normal sinus rhythm. Normal axis. Rate 100. Nonspecific diffuse T wave abnormalities. Discharge - Discharge Clinical Impression: Chest pain Qualifiers: Chest pain type: unspecified Qualified Code(s): R07.9 - Chest pain, unspecified Condition: Fair Disposition: ADMITTED OBSERVATION Admitting Provider: Sayda (Hospitalist) Unit Admitted: Telemetry Referrals: ANGÉLICA HUGHES MD [Primary Care Provider] - Follow up as needed
[2019-02-18 17:41] LABS: INTERNATIONAL RATION (INR) 0.98
[2019-02-18] MEDS ORDERED: MORPHINE SULFATE 10 MG/ML INJ IV PRN (17:54)
[2019-02-18] MEDS ORDERED: NITROGLYCERIN 0.4 MG/TAB 25 TAB/BOTTLE SL PRN (17:54)
--- NOTE | 2019-02-18 18:07 | PDOC H&P ---
History of Present Illness Admission Date/PCP: ANGÉLICA HUGHES MD Patient complains of: chest pain History of Present Illness: NANCI DOMINGO is a 54 year old female with a past medical history of fibromyalgia, bipolar disorder, hypothyroidism, history of paroxysmal atrial fibrillation (transient-low KATELIN score and did not require anticoagulation) chronic cigarette smoking and chronic pain syndrome who presented with chest pain. Patient says that she has been having slowly progressive shortness of breath in the past 5 days. She says that she started having midsternal chest pain 3 days ago which radiates to her left neck and left shoulder. She also complained of associated left jaw pain. She says that the pain is achy and sharp, constant, nonradiating to the back. She denies cough, fever or chills. Denies recent long distance driving or long-haul flights. Denies history of VTE. She smoked on 6 cigarettes a day. Upon encounter, she appears comfortable on room air. Saturating well on room air at 99%. Initial EKG and troponin are unremarkable. Lactic acid very mildly elevated. Dimer is elevated. CTA chest pending to rule out PE. Past Medical History Cardiac Medical History: Denies: Coronary Artery Disease, Myocardial Infarction, Hypertension Pulmonary Medical History: Reports: Bronchitis Denies: Asthma, Chronic Obstructive Pulmonary Disease (COPD), Pneumonia, T uberculosis Neurological Medical History: Denies: Seizures Endocrine Medical History: Reports: Hypothyroidism Musculoskeltal Medical History: Reports: Arthritis - OA, Fibromyalgia Psychiatric Medical History: Reports: Bipolar Disorder, Depression Hematology: Denies: Anemia Past Surgical History Past Surgical History: Reports: Hysterectomy, Orthopedic Surgery Social History Smoking Status: Current Every Day Smoker Frequency of Alcohol Use: Rare Hx Recreational Drug Use: No Drugs: None Family History Family History: Arthritis, Other - Patient's mother is alive and well at 72 years old Parental Family History Reviewed: Yes - No premature CAD Children Family History Reviewed: No Sibling(s) Family History Reviewed.: No Medication/Allergy Home Medications: Gabapentin 800 mg PO TID 01/22/13 Quetiapine Fumarate [Seroquel 100 mg Tablet] 100 mg PO QHS 01/22/13 Oxycodone HCl 20 mg PO QID 10/30/13 Fentanyl [Duragesic 100 Mcg/Hr Transdermal Patch] 100 mcg TOP Q3D 03/27/17 Quetiapine Fumarate [Seroquel 25 mg Tablet] 25 mg PO DAILY 03/27/17 Sertraline HCl [Zoloft] 25 mg PO DAILY 03/27/17 Tizanidine HCl [Zanaflex] 4 mg PO TID 03/27/17 Ceftriaxone 2 gm/D5w RTU [Rocephin RTU 2 gm/D5w 50 ml Premix Bag] 2 gm IV DAILY #8 rtupb 04/02/17 Flu Vacc [id number] [id number] Up/Pf [Fluzone Adlt Quad Vac 0.5 ml Syr] 0.5 ml IM .DISCHARGE PRN disp.syrin 04/02/17 Nicotine [Nicoderm 21 mg/24 Hr Transderm Patch] 1 each TD DAILY patch.td24 04/02/17 Potassium Chloride [Klor-Con 10 Meq Tablet ER] 40 meq PO DAILY #30 tablet.sa 04/02/17 Prednisone [Deltasone 20 mg Tablet] 20 mg PO DAILY #7 tablet 04/02/17 Allergies/Adverse Reactions: No Known Allergies Allergy (Verified 01/19/13 08:35) Review of Systems All systems: reviewed and no additional remarkable complaints except as stated - As mentioned in HPI Physical Exam Vital Signs: Temp Pulse Resp BP Pulse Ox 98.2 F 108 H 17 126/84 H 95 02/18/19 14:16 02/18/19 14:16 02/18/19 15:01 02/18/19 15:00 02/18/19 15:01 Intake & Output 02/17/19 02/18/19 02/19/19 06:59 06:59 06:59 Weight 141 lb 12.116 oz General appearance: PRESENT: no acute distress, well-developed, well-nourished Head exam: PRESENT: atraumatic, normocephalic Eye exam: PRESENT: conjunctiva pink, EOMI, PERRLA. ABSENT: scleral icterus Ear exam: PRESENT: normal external ear exam Mouth exam: PRESENT: moist, tongue midline Neck exam: ABSENT: carotid bruit, JVD, lymphadenopathy, thyromegaly Respiratory exam: PRESENT: clear to auscultation kevin. ABSENT: rales, rhonchi, wheezes Cardiovascular exam: PRESENT: RRR. ABSENT: diastolic murmur, rubs, systolic murmur Pulses: PRESENT: normal dorsalis pedis pul GI/Abdominal exam: PRESENT: normal bowel sounds, soft. ABSENT: distended, guarding, mass, organolmegaly, rebound, tenderness Rectal exam: PRESENT: deferred Extremities exam: PRESENT: full ROM. ABSENT: calf tenderness, clubbing, pedal edema Neurological exam: PRESENT: alert, awake, oriented to person, oriented to place, oriented to time, oriented to situation, CN II-XII grossly intact. ABSENT: motor sensory deficit Results Laboratory Results: 02/18/19 14:25 02/18/19 14:25 02/18/19 02/18/19 02/18/19 14:25 14:25 14:25 WBC 8.9 RBC 4.73 Hgb 13.8 Hct 41.0 MCV 87 MCH 29.2 MCHC 33.8 RDW 17.0 H Plt Count 354 Seg Neutrophils % 56.9 Sodium 139.7 Potassium 3.9 Chloride 104 Carbon Dioxide 24 Anion Gap 12 BUN 12 Creatinine 0.81 Est GFR ( Amer) > 60 Glucose 136 H Lactic Acid 2.2 H Calcium 9.6 Total Bilirubin 0.6 AST 33 Alkaline Phosphatase 100 Total Protein 7.6 Albumin 4.0 02/18/19 02/18/19 14:25 14:25 Creatine Kinase 27 L CK-MB (CK-2) < 0.22 Troponin I < 0.012 Impressions: Chest X-Ray 02/18/19 14:18 IMPRESSION: NO ACUTE RADIOGRAPHIC FINDING IN THE CHEST. Assessment and Plan - Diagnosis (1) Chest pain Qualifiers: Chest pain type: unspecified Qualified Code(s): R07.9 - Chest pain, unspecified Is this a current diagnosis for this admission?: Yes Plan: Saturating well on room air at 99%. Initial EKG and troponin are unremarkable. She does have reproducible chest wall tenderness upon palpation. However, D- dimer is also elevated. CTA chest pending to rule out PE. We will continue to cycle EKG and troponins. (2) Fibromyalgia Is this a current diagnosis for this admission?: Yes Plan: Resume home meds once verified. - Time Time Spent with patient: 25-34 minutes
--- NOTE | 2019-02-18 18:08 | ADVANCED CARE ---
- Diagnosis (1) Chest pain Diagnosis Current: Yes (2) Fibromyalgia Diagnosis Current: Yes Resuscitation Status: Full Code Discussion: Discussed with patient. She says she is a full code and prefers to receive chest compressions, defibrillation or mechanical ventilation if the need arises. She says that her , Dylon Addison is her surrogate medical decision maker.
--- NOTE | 2019-02-18 19:02 | RADIOLOGY REPORT (SQ) ---
EXAM DESCRIPTION: CTA CHEST COMPLETED DATE/TIME: 02/18/2019 6:24 pm REASON FOR STUDY: JORGE FINE COMPARISON: 03/26/2017 TECHNIQUE: CT scan of the chest performed using helical scanning technique with dynamic intravenous contrast injection. Images reviewed with lung, soft tissue and bone windows. Reconstructed coronal and sagittal MPR images reviewed. Additional 3 dimensional post-processing performed to develop Maximal Intensity Projection images (VT P). All images stored on PACS. All CT scanners at this facility use dose modulation, iterative reconstruction, and/or weight based d osing when appropriate to reduce radiation dose to as low as reasonably achievable (ALARA). [facility]: Dose Right [facility]: CareDose [facility]: Dose Right [facility]: Teradose 4D [facility]: Obeo CONTRAST TYPE AND DOSE: contrast/concentration: Isovue 350.00 mg/ml; Total Contrast Delivered: 57.0 ml; Total Saline Delivered: 80.0 ml Contrast bolus optimized for the pulmonary arteries. Not diagnostic for the aorta. RENAL FUNCTION: GFR > 60. RADIATION DOSE: CT Rad equipment meets quality standard of care and radiation dose reduction techniq ues were employed. CTDIvol: 9.9 - 14.3 mGy. DLP: 535 mGy-cm. . LIMITATIONS: None. FINDINGS: LUNGS AND PLEURA: No pneumothorax. Similar emphysema and scattered interstitial changes. No consolidation or pleural effusions. AORTA AND GREAT VESSELS: No aneurysm. Contrast bolus not optimized for the aorta. HEART: Tiny pericardial effusion. No significant coronary artery calcifications. PULMONARY ARTERIES: No emboli visualized in the main pulmonary arteries or the segmental branches. HILAR AND MEDIASTINAL STRUCTURES: Similar small nodes. HARDWARE: None in the chest. UPPER ABDOMEN: No significant findings. Limited exam. THYROID AND OTHER SOFT TISSUES: No masses. No adenopathy. BONES: No acute finding. 3D MIPS: Confirm above findings. OTHER: No other significant finding. IMPRESSION: Tiny pericardial effusion. . No emboli visualized in the main pulmonary arteries or the segmental branches.Similar emphysema and scattered interstitial changes. No consolidation or pleural effusions.. COMMENT: Quality ID # [id number]: Final reports with documentation of one or more dose reduction techniques (e.g., Automated exposure control, adjustment of the mA and/or kV according to patient size, use of iterative reconstruction technique) TECHNICAL DOCUMENTATION: JOB ID: [id number] [place]-72 2010 [employer]- All Rights Reserved Reading location - IP/workstation name: [email or web address]
--- NOTE | 2019-02-18 20:02 | EKG REPORT ---
SEVERITY:- ABNORMAL ECG - SINUS TACHYCARDIA NONSPECIFIC T ABNORMALITIES, DIFFUSE LEADS : Confirmed by: Malu Nava MD 18-Feb-2019 20:02:13
[2019-02-18] MEDS ORDERED: GABAPENTIN 400 MG CAPSULE PO ONE (20:30)
[2019-02-18] MEDS: HEPARIN SOD (PORCINE) 5,000 UNIT/ML 1 ML VIAL SUBCUT SCH (21:06)
[2019-02-18] MEDS ORDERED: QUETIAPINE FUMARATE 100 MG TABLET PO SCH (22:00)
[2019-02-18] MEDS ORDERED: ATORVASTATIN CALCIUM 40 MG TABLET PO SCH (22:00)
[2019-02-19] MEDS: HEPARIN SOD (PORCINE) 5,000 UNIT/ML 1 ML VIAL SUBCUT SCH (05:15)
[2019-02-19 07:23] LABS: ANION GAP 6 (5-19); BLOOD UREA NITROGEN 13 mg/dL (7-20); CALCIUM 9.2 mg/dL (8.4-10.2); CARBON DIOXIDE 26 mmol/L (22-30); CHLORIDE 108 mmol/L (98-107); CREATINE KINASE 25 U/L (30-135); GLUCOSE 109 mg/dL (75-110); POTASSIUM 3.7 mmol/L (3.6-5.0)
[2019-02-19] MEDS ORDERED: GABAPENTIN 400 MG CAPSULE PO SCH (10:00)
[2019-02-19] MEDS ORDERED: ASPIRIN 81 MG TABLET, CHEWABLE PO SCH (10:00)
[2019-02-19 10:30] VITALS: BP 115/61
--- NOTE | 2019-02-19 12:05 | EKG REPORT ---
SEVERITY:- ABNORMAL ECG - SINUS RHYTHM FIRST DEGREE AV BLOCK BORDERLINE T ABNORMALITIES, ANT-LAT LEADS : Confirmed by: Malu Nava MD 19-Feb-2019 12:04:53
--- NOTE | 2019-02-19 18:09 | PDOC DISCHARGE SUMMARY ---
Impression - Admit/DC Date/PCP Admission Date/Primary Care Provider: 02/18/19 17:56 ANGÉLICA HUGHES MD Discharge Date: 02/19/19 - Discharge Diagnosis (1) Chest pain Is this a current diagnosis for this admission?: Yes (2) Fibromyalgia Is this a current diagnosis for this admission?: Yes - Additional Information Resuscitation Status: Full Code Discharge Diet: Cardiac Discharge Activity: Activity As Tolerated Referrals: [facility] [Other] Home Medications: Gabapentin 800 mg PO TID 01/22/13 Quetiapine Fumarate [Seroquel 100 mg Tablet] 100 mg PO QHS 01/22/13 Quetiapine Fumarate [Seroquel 25 mg Tablet] 25 mg PO DAILY 03/27/17 Sertraline HCl [Zoloft] 50 mg PO DAILY 03/27/17 Baclofen [Baclofen 10 mg Tablet] 10 mg PO QID 02/19/19 Esomeprazole Magnesium 40 mg PO DAILY 02/19/19 Famotidine [Pepcid 20 mg Tablet] 20 mg PO QHS 02/19/19 Fentanyl [Duragesic 50 Mcg/Hr Transdermal Patch] 1 patch TOP Q3D 02/19/19 Hydromorphone HCl [Dilaudid 2 mg Tablet] 2 mg PO Q8HP PRN 02/19/19 Levothyroxine Sodium 50 mcg PO Q6AM 02/19/19 History of Present Illiness History of Present Illness: NANCI DOMINGO is a 54 year old female with a past medical history of fibromyalgia, bipolar disorder, hypothyroidism, history of paroxysmal atrial fibrillation (transient-low KATELIN score and did not require anticoagulation) chronic cigarette smoking and chronic pain syndrome who presented with chest pain. Patient says that she has been having slowly progressive shortness of breath in the past 5 days. She says that she started having midsternal chest pain 3 days ago which radiates to her left neck and left shoulder. She also complained of associated left jaw pain. She says that the pain is achy and sharp, constant, nonradiating to the back. She denies cough, fever or chills. Denies recent long distance driving or long-haul flights. Denies history of VTE. She smoked on 6 cigarettes a day. Upon encounter, she appears comfortable on room air. Saturating well on room air at 99%. Initial EKG and troponin are unremarkable. Lactic acid very mildly elevated. Dimer is elevated. CTA chest pending to rule out PE. Hospital Course Hospital Course: This is a 54-year-old female with fibromyalgia and chronic pain syndrome was admitted for chest pain. She had a chest CTA which was unremarkable. Her troponins and EKGs were also cycled and came back unremarkable. She did have a stress testing last year by Dr. Lazar which was also normal. She has been chest pain-free since admission. She will be discharged and was recommended to follow-up with her PCP to reassess if she would benefit from another stress testing as she had one last year. Physical Exam Vital Signs: Temp Pulse Resp BP Pulse Ox 97.6 F 64 12 115/61 98 02/19/19 11:42 02/19/19 11:42 02/19/19 11:42 02/19/19 08:24 02/19/19 11:42 Intake & Output 02/18/19 02/19/19 02/20/19 06:59 06:59 06:59 Intake Total 260 Balance 260 Weight 140 lb 3.424 oz General appearance: PRESENT: no acute distress, well-developed, well-nourished Head exam: PRESENT: atraumatic, normocephalic Eye exam: PRESENT: conjunctiva pink, EOMI, PERRLA. ABSENT: scleral icterus Ear exam: PRESENT: normal external ear exam Mouth exam: PRESENT: moist, tongue midline Neck exam: ABSENT: carotid bruit, JVD, lymphadenopathy, thyromegaly Respiratory exam: PRESENT: clear to auscultation kevin. ABSENT: rales, rhonchi, wheezes Cardiovascular exam: PRESENT: RRR. ABSENT: diastolic murmur, rubs, systolic murmur Pulses: PRESENT: normal dorsalis pedis pul Vascular exam: PRESENT: normal capillary refill GI/Abdominal exam: PRESENT: normal bowel sounds, soft. ABSENT: distended, guarding, mass, organolmegaly, rebound, tenderness Rectal exam: PRESENT: deferred Extremities exam: PRESENT: full ROM. ABSENT: calf tenderness, clubbing, pedal edema Neurological exam: PRESENT: alert, awake, oriented to person, oriented to place, oriented to time, oriented to situation, CN II-XII grossly intact. ABSENT: motor sensory deficit Results Laboratory Results: WBC 8.9 10^3/uL (4.0-10.5) 12/07/19 14:25 RBC 4.73 10^6/uL (3.72-5.28) 02/18/19 14:25 Hgb 13.8 g/dL (12.0-15.5) 02/18/19 14:25 Hct 41.0 % (36.0-47.0) 02/18/19 14:25 MCV 87 fl (80-97) 02/18/19 14:25 MCH 29.2 pg (27.0-33.4) 02/18/19 14:25 MCHC 33.8 g/dL (32.0-36.0) 02/18/19 14:25 RDW 17.0 % (11.5-14.0) H 02/18/19 14:25 Plt Count 354 10^3/uL (150-450) 02/18/19 14:25 Lymph % (Auto) 36.7 % (13-45) 02/18/19 14:25 [place] % (Auto) 4.4 % (3-13) 02/18/19 14:25 Eos % (Auto) 1.4 % (0-6) 02/18/19 14:25 Baso % (Auto) 0.6 % (0-2) 02/18/19 14:25 Absolute Neuts (auto) 5.1 10^3/uL (1.7-8.2) 02/18/19 14:25 Absolute Lymphs (auto) 3.3 10^3/uL (0.5-4.7) 02/18/19 14:25 Absolute Monos (auto) 0.4 10^3/uL (0.1-1.4) 02/18/19 14:25 Absolute Eos (auto) 0.1 10^3/uL (0.0-0.6) 02/18/19 14:25 Absolute Basos (auto) 0.1 10^3/uL (0.0-0.2) 02/18/19 14:25 Seg Neutrophils % 56.9 % (42-78) 02/18/19 14:25 PT 13.0 SEC (11.4-15.4) 02/18/19 14:25 INR 0.98 02/18/19 14:25 APTT 31.0 SEC (23.5-35.8) 02/18/19 14:25 D-Dimer 1.40 ug/mL (0.00-0.50) H 02/18/19 14:25 Sodium 140.4 mmol/L (137-145) 02/19/19 06:01 Potassium 3.7 mmol/L (3.6-5.0) 02/19/19 06:01 Chloride 108 mmol/L (98-107) H 02/19/19 06:01 Carbon Dioxide 26 mmol/L (22-30) 02/19/19 06:01 Anion Gap 6 (5-19) 02/19/19 06:01 BUN 13 mg/dL (7-20) 02/19/19 06:01 Creatinine 0.84 mg/dL (0.52-1.25) 02/19/19 06:01 Est GFR ( Amer) > 60 (>60) 02/19/19 06:01 Est GFR (MDRD) Non-Af > 60 (>60) 02/19/19 06:01 Glucose 109 mg/dL (75-110) 02/19/19 06:01 Lactic Acid 0.8 mmol/L (0.7-2.1) 02/19/19 06:01 Calcium 9.2 mg/dL (8.4-10.2) 02/19/19 06:01 Total Bilirubin 0.6 mg/dL (0.2-1.3) 02/18/19 14:25 Direct Bilirubin 0.2 mg/dL (0.0-0.4) 02/18/19 14:25 Neonat Total Bilirubin Not Reportable 02/18/19 14:25 Neonat Direct Bilirubin Not Reportable 02/18/19 14:25 Neonat Indirect Bili Not Reportable 02/18/19 14:25 AST 33 U/L (14-36) 02/18/19 14:25 ALT 27 U/L (<35) 02/18/19 14:25 Alkaline Phosphatase 100 U/L (38-126) 02/18/19 14:25 Creatine Kinase 25 U/L (30-135) L 02/19/19 06:01 CK-MB (CK-2) < 0.22 ng/mL (<4.55) 02/18/19 14:25 Troponin I < 0.012 ng/mL 02/19/19 07:55 Total Protein 7.6 g/dL (6.3-8.2) 02/18/19 14:25 Albumin 4.0 g/dL (3.5-5.0) 02/18/19 14:25 TSH 3.54 uIU/mL (0.47-4.68) 02/19/19 06:01 02/18/19 02/18/19 02/19/19 14:25 17:49 07:55 CK-MB (CK-2) < 0.22 Troponin I < 0.012 < 0.012 < 0.012 Impressions: Chest X-Ray 02/18/19 14:18 IMPRESSION: NO ACUTE RADIOGRAPHIC FINDING IN THE CHEST. Chest/Abdomen CTA 02/18/19 17:35 IMPRESSION: Tiny pericardial effusion. . No emboli visualized in the main pulmonary arteries or the segmental branches.Similar emphysema and scattered interstitial changes. No consolidation or pleural effusions.. Stroke Is this a Stroke Patient?: No Acute Heart Failure - Is this a Heart Failure Patient?: No
== END 2019-02-19 11:30 | disposition home or self-care (01) ==
LOC: ER 13:52 → EH 17:56 → 5 19:24
PROVIDERS: ADMIT Internal Medicine; ATTEND Internal Medicine
DX: R07.89 Other chest pain (principal); R68.84 Jaw pain; M79.7 Fibromyalgia; F17.210 Nicotine dependence, cigarettes, uncomplicated; G89.4 Chronic pain syndrome; R74.0 Nonspecific elevation of levels of transaminase and lactic acid dehydrogenase [LDH]; F31.9 Bipolar disorder, unspecified; E03.9 Hypothyroidism, unspecified; M19.90 Unspecified osteoarthritis, unspecified site; Z79.899 Other long term (current) drug therapy; Z79.891 Long term (current) use of opiate analgesic
CPT/HCPCS: 93005 ×2; 99285; 36415 ×2; 87040; 82553; 82550 ×2; 83605 ×2; 84443; 85025; 85610; 85730; 80048; 80053; 84484 ×2; 85379; 71045; 71275; 93010; G0378 ×3; J1644 ×2; J3490 ×5

== ENCOUNTER → 2019-04-18 | Outpatient (CLI) | payer MEDICAID ==
--- NOTE | 2019-04-18 09:18 | WOMENS IMAGING REPORT ---
EXAM DESCRIPTION: U/S ABDOMEN TOTAL COMPLETED DATE/TIME: 04/18/2019 8:58 am REASON FOR STUDY: R10.13 EPIGASTRIC PAIN R10.13 EPIGASTRIC PAIN COMPARISON: CT abdomen pelvis 10/31/2007 CT chest 03/26/2017, 02/18/2019 TECHNIQUE: Dynamic and static grayscale images acquired of the abdomen and recorded on PACS. Additio nal selected color Doppler and spectral images recorded. Note: Study does not meet criteria for complete doppler/duplex scan LIMITATIONS: None. FINDINGS: PANCREAS: Midline pancreas unremarkable LIVER: No masses. Normal size. Diffuse increased echogenicity from diffuse hepatocellular disease o r fatty infiltration LIVER VASCULATURE: Normal directional flow of the main portal vein and hepatic veins. GALLBLADDER: Adenomyosis with comet tail artifact over the gallbladder. No stones or sludge. No gal lbladder wall thickening. ULTRASOUND-DETECTED WOOD'S SIGN: Negative. INTRAHEPATIC DUCTS AND COMMON DUCT: CBD and intrahepatic ducts normal caliber. No filling defects. INFERIOR VENA CAVA: Normal flow. AORTA: No aneurysm. RIGHT KIDNEY: 10 cm in length with mild cortical thinning but normal cortical echogenicity. No remy id or suspicious masses. No hydronephrosis. No calcifications. LEFT KIDNEY: 10 cm in length with mild cortical thinning but normal cortical echogenicity.. No remy id or suspicious masses. No hydronephrosis. No calcifications. SPLEEN: Normal size. No solid masses. PERITONEAL AND PLEURAL SPACES: No ascites or effusions. OTHER: No other significant finding. IMPRESSION: Fatty liver Adenomyosis of the gallbladder TECHNICAL DOCUMENTATION: JOB ID: [id number] [employer]- All Rights Reserved Reading location - IP/workstation name: [email or web address]
== END ==
LOC: WI 08:10
PROVIDERS: ATTEND Internal Medicine Gastroenterology
DX: K82.8 Other specified diseases of gallbladder (principal); K76.0 Fatty (change of) liver, not elsewhere classified; R10.13 Epigastric pain
CPT/HCPCS: 76700